=== PATIENT | male | born 1955 | race Caucasian/White ===

== ENCOUNTER → 2017-02-26 | Outpatient (CLI) | payer BC ==
[~2017-02-26] MED LIST: ALBU17IN INH; ASPI1TAB15 PO; ATOR40TA75 PO; BENA40TA7 PO; CARV6.25 PO; CHLO125TA PO; CHLO25TA PO; CLOT10TR MT; DOXY-278 PO; ELIQ5TAB PO; FLUC10TA PO; HYDR-3713 PO; LEVA1TAB2 PO; PRED20TA PO; VENTAER INH; VIAG100T PO
--- NOTE | 2017-02-27 06:34 | REP ---
LEFT SHOULDER, THREE VIEWS: HISTORY: Pain. There is no acute fracture or dislocation. There is narrowing of the acromioclavicular joint space with associated osteophyte formation. Calcification is present lateral to the head of the humerus. This represents ligamentous or tendon calcification. IMPRESSION: Degenerative change as described above. Signed by Dipesh Rod MD 02/27/2017 08:49 A
== END ==
LOC: M WUC 19:06
PROVIDERS: ATTEND Physician Assistant
DX: M25.512 Pain in left shoulder (principal)

== ENCOUNTER 2017-03-02 14:21 | Emergency (ER) | payer BC ==
[~2017-03-02] VITALS: Ht 180.3 cm; Wt 156.8 kg
[2017-03-02] MEDS ORDERED: CHLO125TA PO (14:38)
[2017-03-02] MEDS ORDERED: VIAG100T PO (14:38)
[2017-03-02] MEDS ORDERED: BENA40TA7 PO (14:38)
[2017-03-02] MEDS ORDERED: CARV6.25 PO (14:38)
[2017-03-02] MEDS ORDERED: ATOR40TA75 PO (14:38)
[2017-03-02] MEDS ORDERED: ELIQ5TAB PO (14:38)
[2017-03-02] MEDS ORDERED: LEVA1TAB2 PO (17:56)
[2017-03-02] MEDS ORDERED: ALBU17IN INH (18:00)
--- NOTE | 2017-03-02 18:02 | REP ---
Chest two views HISTORY: Shortness of breath Comparison: 06/25/2012 Increased density is present in the right lower lobe consistent with an infiltrate. The left lung is clear. The heart is normal in size. The pulmonary vasculature is normal in appearance. The bony structure is intact. IMPRESSION: Right lower lobe infiltrate. Signed by Dipesh Rod MD 03/02/2017 05:53 P
[2017-03-02 18:07] VITALS: BP 143/75
[2017-03-02] MEDS ORDERED: PRED20TA PO (18:15)
[2017-03-02] MEDS ORDERED: CLOT10TR MT (18:15)
== END 2017-03-02 18:19 | disposition home or self-care (01) ==
LOC: M ED 14:21
DX: J44.1 Chronic obstructive pulmonary disease with (acute) exacerbation (principal); J18.9 Pneumonia, unspecified organism; Z87.891 Personal history of nicotine dependence; I10 Essential (primary) hypertension

== ENCOUNTER 2017-03-18 13:14 | Inpatient (IN) | payer BC ==
[~2017-03-18] VITALS: Ht 177.8 cm; Wt 158.0 kg
[~2017-03-18 13:14] MED LIST changes: -ASPI1TAB15 PO; -CHLO25TA PO; -DOXY-278 PO; -FLUC10TA PO; -HYDR-3713 PO; -VENTAER INH
[2017-03-18] MEDS ORDERED: HYDR-3713 PO (13:40)
[2017-03-18] MEDS ORDERED: cefTRIAXone SOD 2 GM in D5W 50 ML IV ONE (15:45)
[2017-03-18] MEDS ORDERED: NS 1,000 ML IV ONE (15:45)
[2017-03-18] MEDS ORDERED: AZITHROMYCIN INJ 500 MG, VIAL MATE ADAPTER 1 EACH in D5W 250 ML IV ONE (15:45)
[2017-03-18 16:25] LABS: BASO % 0.1 % (0.0-1.0); EOS # 0.1 10^3/uL (0.0-0.50); EOS % 1.2 % (0.0-3.0); IMMATURE GRANULOCYTE % 0.5 % (0-0); LYMPH # 1.1 10^3/uL (1.5-4.5); LYMPH % 10.9 % (24.0-44.0); MEAN CORPUSCULAR HEMOGLOBIN 30.4 pg (27.0-33.0); MONO # 0.7 10^3/uL (0.0-0.8); MONO % 7.3 % (0.0-5.0); PLATELET COUNT, AUTOMATED 186 10^3/uL (150-450)
[2017-03-18 16:37] LABS: INR 1.32
[2017-03-18] MEDS ORDERED: VENTAER INH (16:45)
[2017-03-18] MEDS ORDERED: CHLO25TA PO (16:45)
[2017-03-18] MEDS ORDERED: ASPI1TAB15 PO (16:45)
[2017-03-18 16:49] LABS: ANION GAP 9 MEQ/L (8-16); BLOOD UREA NITROGEN 24 MG/DL (7-18); CALCIUM LEVEL 8.4 MG/DL (8.8-10.2); CARBON DIOXIDE LEVEL 27 MEQ/L (21-32); CHLORIDE LEVEL 100 MEQ/L (98-107); CREATININE FOR GFR 1.12 MG/DL (0.70-1.30); GLOMERULAR FILTRATION RATE > 60.0 (>49); GLUCOSE, FASTING 173 MG/DL (80-110); SODIUM LEVEL 136 MEQ/L (136-145)
[2017-03-18 16:52] LABS: ALBUMIN 2.6 GM/DL (3.2-5.2); ALBUMIN/GLOBULIN RATIO 0.7 (1.00-1.93); BILIRUBIN,DIRECT 0.2 MG/DL (0.0-0.2); BILIRUBIN,TOTAL 0.6 MG/DL (0.2-1.0); TOTAL PROTEIN 6.3 GM/DL (6.4-8.2)
[2017-03-18] MEDS ORDERED: ISOVUE-370 76% 100ML VIAL (Q9967) As Ordered ONE (16:59)
--- NOTE | 2017-03-18 17:40 | REPUSA ---
CT angiogram of the chest Clinical statement: Chest pain and shortness of breath. Technique: Multiple axial CT images were obtained from the thoracic inlet through the upper abdomen a fter a bolus administration of nonionic intravenous contrast. Coronal and sagittal reconstructions we re also obtained. No comparison is available. Findings: The pulmonary arteries are well-opacified with contrast, with no intraluminal filling defec ts to suggest embolism. The thoracic aorta is unremarkable. Thyroid gland is within normal limits. Th ere is no thoracic lymphadenopathy. There are no pericardial or pleural effusions. There are multifoc al areas of consolidation in the lower lobes of the lungs bilaterally. Limited imaging of the upper a bdomen is unremarkable. There are no suspicious osseous lesions. Impression: 1. No evidence of pulmonary embolism. 2. Multifocal areas of consolidation in the lower lungs bilaterally, consistent with pneumonia.
[2017-03-18] MEDS ORDERED: ONDANSETRON 4 MG TAB (S0181) PO PRN (18:30)
[2017-03-18] MEDS ORDERED: VANCOMYCIN HCL 1,000 MG, VIAL MATE ADAPTER 1 EACH in D5W 250 ML IV ONE (18:45)
[2017-03-18] MEDS ORDERED: NORCO, ANEXSIA 5/325MG TABLET (HYDROcodone/ACETAMINOPHEN) PO PRN (19:00)
--- NOTE | 2017-03-18 19:00 | HPEPDOC ---
General Date of Admission Mar 18, 2017 at 18:25 Chief Complaint The patient is a 62-year-old male Presented to the ER after he was sent from urgent care for an abnormal chest XR. History of Present Illness Patient is a 62 year old male with a PMHx of HTN, CAD s/p Stent (2002) , A. fib s/p Ablation (05/2015, on Eliquis), s/p Loop recorder (2012) and DLP who presented to the ER after he was sent from urgent care for an abnormal chest XR. Patient has noted that he was in the ER on 03/01/2017 for fatigue, loss of appetite and shortness of breath with exertion. Imaging with chest x-ray showed that he had a right lower lobe infiltrate. He was discharged home with Levaquin 500mg daily and Prednisone taper. He noted that he completed his antibiotics and felt better initially but had similar symptoms approaching the end of antibiotic therapy. He noted that he went to urgent care today to evaluate for loss of appetite, no taste and fatigue. He thought he may have had thrush and a prescription was sent to his pharmacy. Urgent care had gotten an XR that recommended a follow up CT scan, hence patient came to [facility] ER. CTA chest was completed which revealed that he had no evidence of PE, but did reveal multifocal areas of consolidation and lower lungs bilaterally consistent with pneumonia. Patient notes that he has been having shortness of breath with exertion, non- productive cough, no fever or chills. He denies nausea, vomiting, abdominal pain , constipation, diarrhea or dysuria. No chest pain or palpitation. He notes that he has had a 10 lbs weight loss in 3-4 weeks because of poor appetite. Home Medications Scheduled Apixaban Base (Eliquis) 5 Mg Tab, 5 MG PO BID, (Reported) Aspirin (Aspirin) 81 Mg Tab, 81 MG PO DAILY, (Reported) Atorvastatin Calcium (Atorvastatin Calcium) 40 Mg Tab, 40 MG PO QHS, (Reported) Benazepril HCl (Benazepril HCl) 40 Mg Tab, 40 MG PO QHS, (Reported) Carvedilol (Carvedilol) 6.25 Mg Tab, 9.375 MG PO BID, (Reported) Chlorthalidone (Chlorthalidone) 25 Mg Tab, 12.5 MG PO DAILY, (Reported) Scheduled PRN Acetaminophen/Hydrocodone (Hydrocodone/Acetaminophen 5-325 mg) 1 Tab Tab, 1 TAB PO QID PRN for pain, (Reported) Albuterol Sulfate (Ventolin Hfa) 108 Mcg/Act Aer, 2 PUFFS INH QID PRN for SHORTNESS OF BREATH, (Reported) Sildenafil Citrate (Viagra) 100 Mg Tab, 100 MG PO PRN PRN for ERECTILE DYSFUNCTION, (Reported) Allergies Coded Allergies: Penicillins (Verified Allergy, Unknown, REACTION A CHILD, 09/03/12) Penicillins Cross Reactors (Verified Allergy, Unknown, REACTION A CHILD , 09/03/12) Past Medical History Medical History HTN, CAD s/p Stent (2002), A. 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 Review of Symptoms Other systems Negative otherwise stated in HPI Vital Signs - Vitals: BP 132/60, HR 77, RR 20, Sat 95%RA, Temp 99.4F - General: Lying in bed, No acute distress, Speaking in full sentences, AAOx3 - HEENT: NC, AT, PERRLA, EOMI, Mild white patches on posterior aspect of tongue - CVS: RRR, +S1S2 - Lungs: Fair air entry bilaterally, No appreciable wheezing / rales / rhonchi - Abdomen: Soft, Non-distended, Non-tender, + Bowel sounds x 4 - Extremities: No lower extremity edema, No calf tenderness - Neuro: No focal motor or sensory deficit - Skin: No visible rashes Laboratory Data Labs 24H Laboratory Tests 2 03/18/17 16:13: Prothrombin Time 16.7H, Prothromb Time International Ratio 1.32 03/18/17 16:14: Immature Granulocyte % (Auto) 0.5H, White Blood Count 10.0, Red Blood Count 3.36L, Hemoglobin 10.2L, Hematocrit 30.9L, Mean Corpuscular Volume 92.0, Mean Corpuscular Hemoglobin 30.4, Mean Corpuscular Hemoglobin Concent 33.0, Red Cell Distribution Width 13.0, Platelet Count 186, Neutrophils (%) (Auto) 80.0H, Lymphocytes (%) (Auto) 10.9L, Monocytes (%) (Auto) 7.3H, Eosinophils (%) (Auto) 1.2, Basophils (%) (Auto) 0.1, Neutrophils # (Auto) 8.0H, Lymphocytes # (Auto) 1.1L, Monocytes # (Auto) 0.7, Eosinophils # (Auto) 0.1, Basophils # (Auto) 0.0, Immature Granulocyte # (Auto) 0.1H, Nucleated Red Blood Cells % (auto) 0.0, Anion Gap 9, Glomerular Filtration Rate > 60.0, Lactic Acid Level 1.1, Blood Urea Nitrogen 24H, Creatinine 1.12, Sodium Level 136, Potassium Level 4.0, Chloride Level 100, Carbon Dioxide Level 27, Calcium Level 8.4L, Aspartate Amino Transf (AST/SGOT) 20, Alanine Aminotransferase (ALT/SGPT) 17, Alkaline Phosphatase 103, Total Bilirubin 0.6, Direct Bilirubin 0.2, C-Reactive Protein, Quantitative 13.80H, Total Protein 6.3L, Albumin 2.6L, Albumin/Globulin Ratio 0.70L 03/18/17 16:16: Urine Appearance CLEAR, Urine Color YELLOW, Urine pH 5.0, Urine Specific [place] 1.019, Urine Protein NEGATIVE, Urine Glucose (UA) NEGATIVE, Urine Ketones NEGATIVE, Urine Urobilinogen 2.0H, Urine Bilirubin NEGATIVE, Urine Leukocyte Esterase NEGATIVE, Urine Blood 1+H, Urine Nitrite NEGATIVE, Urine WBC (Auto) 1, Urine RBC (Auto) 5H, Urine Hyaline Casts (Auto) 0, Urine Bacteria ( Auto) NEGATIVE, Urine Squamous Epithelial Cells 0, Urine Mucus (Auto) SMALL, Urine Sperm (Auto) CBC/BMP Laboratory Tests 03/18/17 16:14 Red Blood Count 3.36 L, Mean Corpuscular Volume 92.0, Mean Corpuscular Hemoglobin 30.4, Mean Corpuscular Hemoglobin Concent 33.0, Red Cell Distribution Width 13.0, Neutrophils (%) (Auto) 80.0 H, Lymphocytes (%) (Auto) 10.9 L, Monocytes (%) (Auto) 7.3 H, Eosinophils (%) (Auto) 1.2, Basophils (%) ( Auto) 0.1, Neutrophils # (Auto) 8.0 H, Lymphocytes # (Auto) 1.1 L, Monocytes # ( Auto) 0.7, Eosinophils # (Auto) 0.1, Basophils # (Auto) 0.0, Calcium Level 8.4 L Microbiology Microbiology 03/18/17 Blood Culture, Received Pending 03/18/17 Blood Culture, Received Pending 03/18/17 Influenza Virus Type A Antigen - Final, Complete 03/18/17 Influenza Virus Type B Antigen - Final, Complete Plan / VTE VTE Prophylaxis Ordered?: Yes Plan Plan Bilateral pneumonia - Failure of outpatient treatment; completed 14 day course of Levaquin - Presented from urgent care because of abnormal XR - Physical unrevealing - Labs reveal no leukocytosis or lactic acidosis; mild elevation in CRP - CTA Chest 03/18: no PE, multifocal areas of consolidation in lower lungs bilaterally - consistent with pneumonia - Will check blood cultures and sputum cultures - will trend CRP - Will start Cefepime, Azithromycin and Vancomycin for coverage of HCAP given failure with Levaquin - c/w IV fluid hydration Possible thrush - Mild white patches on posterior aspect of tongue - will start Diflucan 100 qdaily x 7 days Normocytic anemia - Hg appears to be lower than baseline from 1 year prior - Will check Iron panel, B12, Folate, Reticulocyte count, Occult blood - Will continue to monitor HTN - c/w Carvedilol; will hold EV-I and Chlorthalidone CAD s/p Stent (2002) - c/w ASA A. fib - s/p Ablation (05/2015) - c/w Carvedilol and Eliquis Loop recorder placement (2012) DLP - Hold satin; re: Diflucan Gastrointestinal prophylaxis - Will start Protonix DVT prophylaxis - Will start LovenoCYNTHIA Carmen MD Mar 18, 2017 19:00
[2017-03-18 19:07] LABS: FERRITIN 726 NG/ML (26-388); PERCENT SATURATION 10.6 % (19.7-50.0); TOTAL IRON BINDING CAPACITY 170 UG/DL (250-450)
[2017-03-18 19:19] LABS: RETIC HEMOGLOBIN EQUIVALENT 30.2 pg (24-36); RETICULOCYTE % 1.1 % (0.5-1.5)
[2017-03-18] MEDS ORDERED: PANTOPRAZOLE 40MG INJ (PROTONIX) (C9113) IV SCH (21:00)
[2017-03-18] MEDS: FLUCONAZOLE 100 MG TAB PO SCH (21:42)
[2017-03-18] MEDS: NS 1,000 ML IV SCH (21:42)
[2017-03-18] MEDS: APIXABAN 5 MG TAB (ELIQUIS) PO SCH (21:42)
[2017-03-18] MEDS: CARVedilol 6.25 MG TAB PO SCH (21:44)
[2017-03-18 22:00] VITALS: BP 168/82
[2017-03-18] MEDS: VANCOMYCIN HCL 1,000 MG, VIAL MATE ADAPTER 1 EACH in D5W 250 ML IV SCH (22:56)
--- NOTE | 2017-03-18 23:43 | PHACANCOPD ---
PHARMACY VANCOMYCIN DOSING Pt Demographics Demographics Patient Age:62 , Weight:156.200 , Gender: male Adjusted Body Weight Date: 03/18/17, Adjusted Body Weight: [106] Kg Events Past 24 Hours Events Past 24 Hours: NO: Dialysis, Diuretic Therapy, Change in CrCl, Fever, Elevation in WBC, Pending Diagnostics, Pending Procedures, Other Vancomycin Vancomycin Target Ranges: 15-20 mcg/ml Vancomycin Load Y/N: Yes Load Dose Date Time Vancomycin Load Dose: 2000MG Date: 03-18 Time: 2200 Vancomycin Dose Date: 03/18/17. Current Vancomycin Dose: [1000MG Q8H] Intermittent Dosing?: No Labs Labs Item Value Date Time White Blood Count 10.0 10^3/uL 03/18/174 Creatinine 1.12 MG/DL 03/18/171613 Blood Urea Nitrogen 24 MG/DL H 03/18/17 161 Vital Signs Label Value Date Time Patient Temperature 99.8 degrees F 03/18/17 2200 Temperature Source Temporal 03/18/170 Micro Microbiology 03/18/17 Blood Culture, Received Pending 03/18/17 Blood Culture, Received Pending 03/18/17 Influenza Virus Type A Antigen - Final, Complete 03/18/17 Influenza Virus Type B Antigen - Final, Complete Creatinine Clearance Date:03/18/17. Creatinine Clearance: [69]. Pending Labs Trough 10-16 @ 2100 Assessment and Plan Maintaining Current Dose?: Yes Reason for dose change: No Dose Change Pharmacist Note Pharmacist Note Date: 03/18/17. Pharmacist note:Dosed at 1000mg q8h with a trough ordered for 10 -16 @ 2100. Will continue to monitor and make adjustments as needed. KARELY DURAND [facility]ARM[facility] Mar 18, 2017 23:43
[2017-03-19] MEDS: AZITHROMYCIN INJ 500 MG, VIAL MATE ADAPTER 1 EACH in D5W 250 ML IV SCH (00:45)
[2017-03-19] MEDS: CEFEPIME HCL 1 GM in D5W 50 ML IV SCH ×2 (04:48→15:55)
[2017-03-19 06:00] VITALS: BP 108/54
[2017-03-19] MEDS: VANCOMYCIN HCL 1,000 MG, VIAL MATE ADAPTER 1 EACH in D5W 250 ML IV SCH ×3 (06:13→22:54)
[2017-03-19 06:32] LABS: BASO % 0.3 % (0.0-1.0); EOS # 0.1 10^3/uL (0.0-0.50); EOS % 1.6 % (0.0-3.0); IMMATURE GRANULOCYTE % 0.3 % (0-0); LYMPH # 1.1 10^3/uL (1.5-4.5); LYMPH % 14.8 % (24.0-44.0); MEAN CORPUSCULAR HEMOGLOBIN 29.9 pg (27.0-33.0); MEAN CORPUSCULAR HGB CONC 32.9 g/dl (32.0-36.5); MEAN CORPUSCULAR VOLUME 90.9 fl (80.0-96.0); MONO # 0.7 10^3/uL (0.0-0.8); MONO % 9.1 % (0.0-5.0); NEUTROPHILS # 5.7 10^3/uL (1.8-7.7); NEUTROPHILS % 73.9 % (36.0-66.0); PLATELET COUNT, AUTOMATED 149 10^3/uL (150-450); RED CELL DISTRIBUTION WIDTH 12.9 % (11.5-14.5); WHITE BLOOD COUNT 7.7 10^3/uL (4.0-10.0)
[2017-03-19 06:51] LABS: ALKALINE PHOSPHATASE 90 U/L (45-117); ALT/SGPT 16 U/L (12-78); AST/SGOT 14 U/L (15-37); BILIRUBIN,TOTAL 0.4 MG/DL (0.2-1.0); BLOOD UREA NITROGEN 17 MG/DL (7-18); CALCIUM LEVEL 8.3 MG/DL (8.8-10.2); CREATININE FOR GFR 0.89 MG/DL (0.70-1.30); GLUCOSE, FASTING 146 MG/DL (80-110); MAGNESIUM LEVEL 2.1 MG/DL (1.8-2.4); SODIUM LEVEL 136 MEQ/L (136-145); TOTAL PROTEIN 6.5 GM/DL (6.4-8.2)
[2017-03-19] MEDS: NS 1,000 ML IV SCH ×2 (06:55→19:25)
[2017-03-19 07:03] LABS: ALBUMIN 2.2 GM/DL (3.2-5.2); ALBUMIN/GLOBULIN RATIO 0.51 (1.00-1.93)
[2017-03-19 08:24] LABS: ANION GAP 8 MEQ/L (8-16); CARBON DIOXIDE LEVEL 28 MEQ/L (21-32); CHLORIDE LEVEL 100 MEQ/L (98-107)
[2017-03-19] MEDS: ENOXAPARIN 40 MG/0.4 ML SYRINGE (J1650) SC SCH (09:11)
[2017-03-19] MEDS: APIXABAN 5 MG TAB (ELIQUIS) PO SCH ×2 (09:11→21:47)
[2017-03-19] MEDS: CARVedilol 6.25 MG TAB PO SCH ×2 (09:12→21:47)
[2017-03-19] MEDS: ASPIRIN 81 MG ENTERIC TAB PO SCH (09:13)
[2017-03-19 09:16] LABS: VITAMIN B12 LEVEL 345 PG/ML (247-911)
--- NOTE | 2017-03-19 09:16 | ECGEPIP ---
Stationary ECG Study [facility] - ED Test Date: 2017-03-18 Pat Name: FRANCK MANCUSO Department: Room: [place] [address] Gender: M [employer] Hel[employer]: promise : 1955 Requested By: AMGEN Dorsey PA-C Order Number: [id number] Reading MD: Shayne Washington Measurements Intervals [place] Rate: 76 P: 55 VT: 154 QRS: 32 QRSD: 88 T: 26 QT: 346 QTc: 390 Interpretive Statements SINUS RHYTHM NSTTW ABNORMALITIES SIMILAR TO 06/25/12 Electronically Signed On 03-19-2017 9:16:06 EDT by Shayne Washington
[2017-03-19] MEDS: ACETAMINOPHEN TAB 650MG DOSE (2X325MG) PO PRN (13:30)
[2017-03-19 14:00] VITALS: BP 132/74
--- NOTE | 2017-03-19 15:58 | IPN ---
DATE: 03/19/2017 SUBJECTIVE: The patient is seen and examined in the room today. The patient stated that his symptoms have remained the same as yesterday. The patient has not noticed any significant improvement at the moment. The patient continues to have intermittent cough; however, he feels that he cannot bring up any sputum for cultures. The patient has a history of atrial fibrillation. The patient also has a loop recorder in place. Denies any chest pain. Still has intermittent shortness of breath requiring intermittent oxygen supplement. Denies any fever or chills. Denies any recent hospitalizations. OBJECTIVE: VITAL SIGNS: Temperature 99.5, pulse 73, respirations 18, blood pressure 108/54 , pulse oximetry is 93% with 2 liters nasal cannula. GENERAL: Morbidly obese. Fatigued. No sign of acute distress. Oriented times three. HEENT: Normocephalic, atraumatic. Extraocular motors are grossly intact. CARDIOVASCULAR: Positive S1, S2. Regular rate. LUNGS: Clear to auscultation bilaterally. No wheezes or rhonchi. ABDOMEN: Soft, nontender, nondistended. Bowel sounds present. EXTREMITIES: No edema. No sign of cyanosis. LABORATORY DATA: WBC is 7.7, hemoglobin 9.5, hematocrit 28.9, platelet count is 149. Sodium is 136, potassium 4, chloride is 100, carbon dioxide 28, BUN 17, creatinine 0.89, fasting glucose 146, calcium 8.3, magnesium 2.1, total bilirubin 0.4, AST 14, ALT 16, alkaline phosphatase 90, C-reactive protein is 12, total protein is 625, albumin 2.2. ASSESSMENT AND PLAN: 1. Multifocal pneumonia in bilateral lungs. The patient came to the emergency room previously and the patient was discharged home with 14-days of Levaquin. The patient stated that during the first 7 days, the patient felt some improvement; however, later the symptoms continued to get worse. The patient was started on broad spectrum antibiotics. Unfortunately, we could not get any sputum sample for the culture. 2. History of atrial fibrillation, status post ablation. On carvedilol and Eliquis. Per patient, the patient does not have any arrhythmia since ablation. EKG performed and shows sinus rhythm. 3. History of coronary artery disease, status post stent and on aspirin. 4. Dyslipidemia. Was on statin at home. Currently, due to the Diflucan treatment, statin will be on hold. 5. Hypertension. At the time of the encounter, the patient's blood pressure is in the satisfactory range. Continue to hold chlorthalidone. 6. Deep vein thrombosis (DVT) prophylaxis. On Eliquis. MTDD
[2017-03-19] MEDS: FLUCONAZOLE 100 MG TAB PO SCH (21:46)
[2017-03-19 22:00] VITALS: BP 142/64
[2017-03-20] MEDS: AZITHROMYCIN INJ 500 MG, VIAL MATE ADAPTER 1 EACH in D5W 250 ML IV SCH (00:58)
[2017-03-20] MEDS: CEFEPIME HCL 1 GM in D5W 50 ML IV SCH ×2 (05:05→17:36)
[2017-03-20 06:00] VITALS: BP 130/78
[2017-03-20] MEDS: VANCOMYCIN HCL 1,000 MG, VIAL MATE ADAPTER 1 EACH in D5W 250 ML IV SCH ×3 (06:10→22:22)
[2017-03-20 07:14] LABS: BASO % 0.3 % (0.0-1.0); EOS # 0.1 10^3/uL (0.0-0.50); EOS % 1.3 % (0.0-3.0); IMMATURE GRANULOCYTE % 0.5 % (0-0); LYMPH # 1.1 10^3/uL (1.5-4.5); MEAN CORPUSCULAR HEMOGLOBIN 30.1 pg (27.0-33.0); MEAN CORPUSCULAR HGB CONC 33.5 g/dl (32.0-36.5); MEAN CORPUSCULAR VOLUME 89.9 fl (80.0-96.0); MONO # 0.7 10^3/uL (0.0-0.8); MONO % 8.5 % (0.0-5.0); NEUTROPHILS # 5.8 10^3/uL (1.8-7.7); NEUTROPHILS % 75.4 % (36.0-66.0); PLATELET COUNT, AUTOMATED 169 10^3/uL (150-450); RED CELL DISTRIBUTION WIDTH 12.6 % (11.5-14.5); WHITE BLOOD COUNT 7.7 10^3/uL (4.0-10.0)
[2017-03-20 07:38] LABS: ALBUMIN/GLOBULIN RATIO 0.43 (1.00-1.93); ALKALINE PHOSPHATASE 89 U/L (45-117); ALT/SGPT 16 U/L (12-78); ANION GAP 8 MEQ/L (8-16); AST/SGOT 13 U/L (15-37); BILIRUBIN,TOTAL 0.5 MG/DL (0.2-1.0); BLOOD UREA NITROGEN 9 MG/DL (7-18); CALCIUM LEVEL 8.2 MG/DL (8.8-10.2); CARBON DIOXIDE LEVEL 24 MEQ/L (21-32); CHLORIDE LEVEL 100 MEQ/L (98-107); CREATININE FOR GFR 0.75 MG/DL (0.70-1.30); GLOMERULAR FILTRATION RATE > 60.0 (>49); GLUCOSE, FASTING 145 MG/DL (80-110); MAGNESIUM LEVEL 1.9 MG/DL (1.8-2.4); POTASSIUM SERUM 3.6 MEQ/L (3.5-5.1); SODIUM LEVEL 132 MEQ/L (136-145); TOTAL PROTEIN 6.6 GM/DL (6.4-8.2)
[2017-03-20] MEDS: ENOXAPARIN 40 MG/0.4 ML SYRINGE (J1650) SC SCH (10:14)
[2017-03-20] MEDS: ASPIRIN 81 MG ENTERIC TAB PO SCH (10:14)
[2017-03-20] MEDS: NS 1,000 ML IV SCH (10:14)
[2017-03-20] MEDS: CARVedilol 6.25 MG TAB PO SCH ×2 (10:15→22:22)
[2017-03-20] MEDS: APIXABAN 5 MG TAB (ELIQUIS) PO SCH ×2 (10:15→22:20)
[2017-03-20 14:00] VITALS: BP 124/76
--- NOTE | 2017-03-20 15:30 | IPN ---
DATE OF EXAM: 03/20/2017 SUBJECTIVE: The patient tells me that he is feeling better. He tells me he still has some shortness of breath with exertion, but he finds it easier to take a deep breath. He tells me that he has a little bit of dry cough but, all in all, he does feel improving. He denies chest pain, nausea, vomiting, fevers, or chills. OBJECTIVE: VITAL SIGNS: Temperature 98, pulse 64, respiratory rate 16, blood pressure 130/78, oxygen saturation 98% on room air. GENERAL: He is an obese, elderly, man sitting on the edge of his bed. He does not appear to be in any acute distress. HEENT: Cranial nerves II-XII are grossly intact. He has moist mucous membranes. Difficult to assess for any elevation of central venous pressure (CVP) secondary to his body habitus and his quiroga. CARDIOVASCULAR EXAM: S1, S2, regular. No distant heart sounds appreciated. RESPIRATORY EXAM: Is actually quite clear with good air movement. ABDOMINAL EXAM: Is obese. Bowel sounds present. The abdomen is soft. EXTREMITIES: No clubbing, cyanosis, or edema. LABORATORY STUDIES: WBC 7.7, hemoglobin 9.5, platelet count 169. Chemistry panel: Sodium 132, potassium 3.6, chloride 100, bicarbonate 24, BUN 9 , creatinine 0.7. CRP is fairly stable at 13. Microbiology: Blood cultures are negative from 03/18/2017 as well as an influenza swab. IMAGING: The patient did a CT angiography of the chest which revealed no evidence of pulmonary embolus (PE) and multifocal areas of consolidation in the lower lungs bilaterally, consistent with pneumonia. ASSESSMENT AND PLAN: This is a 62-year-old man admitted at this time for pneumonia. PROBLEM: 1. Pneumonia. The patient has been in empiric broad-spectrum antibiotics with azithromycin, vancomycin, and cefepime. He does appear to be improving. He had previously completed seven days of Levaquin; however, his symptoms did not improve. At this time, I will check respiratory PCR panel as well as a methicillin-resistant Staphylococcus aureus (MRSA) screen. If they are negative, I think he could likely be discharged on potentially by mouth doxycycline as early as tomorrow as long as his ambulating oxygen saturation continues to show no need for oxygen. He does appear to be improving. This syndrome appears to be resolving. 2. Atrial fibrillation, status post ablation. He is anticoagulated with Eliquis and rate controlled with Coreg. 3. Coronary artery disease. He is on a beta-twyla, aspirin. Curiously, he is not on a statin. Will defer to his outpatient providers. 4. Hypertension, controlled. His chlorthalidone is currently on hold. Consider restarting upon discharge. 5. Oral thrush. The patient is on Diflucan. 6. Deep venous thrombosis (DVT) prophylaxis. Patient is on Eliquis. DISPOSITION: Pending his continued progress and his inability to narrow antibiotics spectrum. MTDD
[2017-03-20 22:00] VITALS: BP 141/62
[2017-03-20] MEDS: ACETAMINOPHEN TAB 650MG DOSE (2X325MG) PO PRN (22:20)
[2017-03-20] MEDS: FLUCONAZOLE 100 MG TAB PO SCH (22:21)
[2017-03-21] MEDS: AZITHROMYCIN INJ 500 MG, VIAL MATE ADAPTER 1 EACH in D5W 250 ML IV SCH (00:01)
[2017-03-21] MEDS: CEFEPIME HCL 1 GM in D5W 50 ML IV SCH (04:12)
[2017-03-21 06:00] VITALS: BP 145/64
[2017-03-21] MEDS: VANCOMYCIN HCL 1,000 MG, VIAL MATE ADAPTER 1 EACH in D5W 250 ML IV SCH (06:02)
[2017-03-21 07:46] LABS: BASO % 0.2 % (0.0-1.0); EOS # 0.2 10^3/uL (0.0-0.50); EOS % 1.9 % (0.0-3.0); IMMATURE GRANULOCYTE % 0.4 % (0-0); LYMPH # 0.8 10^3/uL (1.5-4.5); LYMPH % 9.7 % (24.0-44.0); MEAN CORPUSCULAR HGB CONC 33.3 g/dl (32.0-36.5); MONO # 0.7 10^3/uL (0.0-0.8); NEUTROPHILS # 6.8 10^3/uL (1.8-7.7); NEUTROPHILS % 79.8 % (36.0-66.0); PLATELET COUNT, AUTOMATED 156 10^3/uL (150-450); RED CELL DISTRIBUTION WIDTH 12.5 % (11.5-14.5); WHITE BLOOD COUNT 8.5 10^3/uL (4.0-10.0)
[2017-03-21 08:15] LABS: ALBUMIN 2.1 GM/DL (3.2-5.2); ALBUMIN/GLOBULIN RATIO 0.46 (1.00-1.93); ALKALINE PHOSPHATASE 92 U/L (45-117); ALT/SGPT 17 U/L (12-78); ANION GAP 5 MEQ/L (8-16); AST/SGOT 13 U/L (15-37); BILIRUBIN,TOTAL 0.5 MG/DL (0.2-1.0); BLOOD UREA NITROGEN 9 MG/DL (7-18); CALCIUM LEVEL 8.8 MG/DL (8.8-10.2); CARBON DIOXIDE LEVEL 31 MEQ/L (21-32); CHLORIDE LEVEL 98 MEQ/L (98-107); CREATININE FOR GFR 0.85 MG/DL (0.70-1.30); GLOMERULAR FILTRATION RATE > 60.0 (>49); GLUCOSE, FASTING 160 MG/DL (80-110); MAGNESIUM LEVEL 1.8 MG/DL (1.8-2.4); POTASSIUM SERUM 3.9 MEQ/L (3.5-5.1); SODIUM LEVEL 134 MEQ/L (136-145); TOTAL PROTEIN 6.7 GM/DL (6.4-8.2)
[2017-03-21] MEDS: ASPIRIN 81 MG ENTERIC TAB PO SCH (08:37)
[2017-03-21] MEDS: APIXABAN 5 MG TAB (ELIQUIS) PO SCH (08:37)
[2017-03-21] MEDS: ENOXAPARIN 40 MG/0.4 ML SYRINGE (J1650) SC SCH (08:37)
[2017-03-21 08:38] VITALS: BP 145/70
[2017-03-21] MEDS: CARVedilol 6.25 MG TAB PO SCH (08:38)
[2017-03-21] MEDS ORDERED: FLUC10TA PO (10:09)
[2017-03-21] MEDS ORDERED: DOXY-278 PO (10:09)
--- NOTE | 2017-03-21 15:56 | DSES ---
DATE OF ADMISSION: 03/18/2017 DATE OF DISCHARGE: 03/21/2017 DISCHARGE DIAGNOSIS: Community-acquired pneumonia. SECONDARY DIAGNOSES: 1. Atrial fibrillation. 2. Coronary artery disease. 3. Hypertension. 4. Oral thrush. HOSPITAL COURSE: The patient is a 62-year-old man who had had respiratory symptoms and feeling unwell for several days. He presented to his primary care provider and had actually been on a 14-day course of levofloxacin and seven days into it, he began to have worsening of his symptoms prompting him to present to the emergency room. He was found on admission imaging to have a low-grade temperature and a CT angiography revealed multifocal areas of consolidation in the lower lung tuttle bilaterally consistent with pneumonia, and as such, he was admitted to the hospitalist service. The patient was initially on fairly broad spectrum antibiotics including cefepime, azithromycin, and vancomycin. However, his blood cultures remained negative and influenza swab and respiratory PCR panel remained negative. He did not have significant leukocytosis, fever, or sepsis. His symptoms did gradually improve and antibiotic spectrum was narrowed. He had no need for any oxygen requirement and his cough did resolve. During his stay, he was noted to have oral thrush and was started on a short course of Diflucan with improvement in his symptoms. SUBJECTIVE: This morning, the patient reports that he is feeling well. He has a light headache and some mild shortness of breath with strenuous exertion but he is able to ambulate without any oxygen requirement and feels as though his syndrome is resolving. OBJECTIVE: VITAL SIGNS: Temperature 98.8, pulse 60, respiratory rate 15, blood pressure 145/64, oxygen saturation 92% on room air. GENERAL: He is an obese, elderly, man sitting on the edge of the bed. He does not appear to be in any acute distress. He actually stands up to great me as I enter the room. NEUROLOGIC: Cranial nerves II-XII are grossly intact. HEENT: He has moist mucous membranes. No elevation of central venous pressure (CVP), although it was difficult to assess secondary to his body habitus and his large quiroga. CARDIOVASCULAR: S1, S2, appears regular. RESPIRATORY: Actually very clear with good air movement throughout all lung tuttle. ABDOMEN: Grossly obese. Bowel sounds are present. The abdomen is soft. EXTREMITIES: No clubbing, cyanosis, or edema. LABORATORY STUDIES: WBC 8.5, hemoglobin 9.6, hematocrit 28.8, platelet count 156. Chemistry panel: Sodium 134, potassium 3.9, chloride 98, bicarbonate 31, BUN 9, creatinine 0.8. MICROBIOLOGY: All negative as outlined above. IMAGING STUDIES: As outlined above. ASSESSMENT AND PLAN: This is a 62-year-old man admitted with pneumonia. PROBLEMS: 1. Community-acquired pneumonia. The patient was initially on broad spectrum antibiotics. However, his cultures were negative and he did not appear to be septic. His antibiotic spectrum will be narrowed to doxycycline 100 mg by mouth twice a day to complete five additional days. He should followup with his primary care provider (PCP) within seven days. 2. Oral thrush. The patient was started on Diflucan earlier during his stay. He is being discharged on this medication which he will continue to complete a seven-day course. 3. Atrial fibrillation status post ablation. He is anticoagulated with Eliquis and rate controlled with Coreg. He appeared regular during his stay. 4. Coronary artery disease. He is on a beta twyla and aspirin. He is not on a statin. We will defer to his outpatient providers. 5. Hypertension. His chlorthalidone and benazepril were on hold while he was in the hospital but will restart upon discharge. 6. Chronic pain. Continue with hydrocodone, acetaminophen. 7. Asthma. Continue with Ventolin. 8. Erectile dysfunction. Continue with sildenafil. DISPOSITION: The patient is being discharged home. He is independent of his activities of daily living (ADLs). He is at his functional baseline. His clinical status has improved. He can followup with his primary care provider (PCP) in seven days. His activity and diet are as prior to admission. He is to return to the emergency room (ER) if his symptoms worsen. MEDICATIONS AT THE TIME OF DISCHARGE: - doxycycline 100 mg every 12 hours for five days - fluconazole 100 mg at bedtime for six days - acetaminophen/hydrocodone 5/325 one tablet four times daily as needed for pain - Ventolin HFA two puffs inhaled four times a day as needed for shortness of breath - Eliquis 5 mg twice a day - aspirin 81 mg daily - atorvastatin 40 mg at bedtime - benazepril 40 mg at bedtime - carvedilol 9.375 mg twice a day - chlorthalidone 12.5 mg daily - sildenafil 100 mg as needed for erectile dysfunction Greater than 30 minutes was spent organizing disposition.
== END 2017-03-21 12:10 | disposition home or self-care (01) | DRG 139 ==
LOC: M ED 13:14 → M ED INP 18:25 → M MS5PR 20:43
PROVIDERS: ADMIT Internal Medicine; ATTEND Internal Medicine
DX: J18.9 Pneumonia, unspecified organism (principal); B37.0 Candidal stomatitis; I48.91 Unspecified atrial fibrillation; E66.01 Morbid (severe) obesity due to excess calories; I25.10 Atherosclerotic heart disease of native coronary artery without angina pectoris; I10 Essential (primary) hypertension; J45.909 Unspecified asthma, uncomplicated; N52.9 Male erectile dysfunction, unspecified; Z79.82 Long term (current) use of aspirin; Z79.899 Other long term (current) drug therapy; Z88.0 Allergy status to penicillin; Z79.01 Long term (current) use of anticoagulants; D64.9 Anemia, unspecified; E78.5 Hyperlipidemia, unspecified

== ENCOUNTER → 2017-03-18 | Outpatient (CLI) | payer BC ==
--- NOTE | 2017-03-18 12:28 | REP ---
Chest x-ray: Two views. History: Cough. Comparison chest x-ray March 02, 2017 and March 20, 2011. Findings: There is abnormal opacity in the right lower lobe posteromedially. There is fullness in the right hilar region. There is a nodular opacity in the left perihilar region on the left measuring 19 mm in greatest diameter. Some pleural thickening is seen laterally on the right. Heart is not enlarged. A rhythm monitoring device is seen in the precordial soft tissues. Some increased markings are noted in the left lower lobe as well. Findings are more prominent than on March 02, 2017. Impression: Persistent opacities right lower lobe and left lower lobe distribution. Left perihilar nodular opacity. Fullness in the right hilus. Consider chest CT. Signed by Raudel Sullivan MD 03/18/2017 01:26 P
[2017-03-18 18:04] LABS: BASO % 0.2 % (0.0-1.0); EOS # 0.1 10^3/uL (0.0-0.50); EOS % 0.9 % (0.0-3.0); IMMATURE GRANULOCYTE % 0.5 % (0-0); LYMPH # 1.1 10^3/uL (1.5-4.5); LYMPH % 10.9 % (24.0-44.0); MEAN CORPUSCULAR HEMOGLOBIN 29.9 pg (27.0-33.0); MEAN CORPUSCULAR HGB CONC 32.1 g/dl (32.0-36.5); MEAN CORPUSCULAR VOLUME 93.3 fl (80.0-96.0); MONO # 0.8 10^3/uL (0.0-0.8); NEUTROPHILS # 8.2 10^3/uL (1.8-7.7); NEUTROPHILS % 79.5 % (36.0-66.0); PLATELET COUNT, AUTOMATED 203 10^3/uL (150-450); RED CELL DISTRIBUTION WIDTH 13.2 % (11.5-14.5); WHITE BLOOD COUNT 10.3 10^3/uL (4.0-10.0)
== END ==
LOC: M WUC 11:25
PROVIDERS: ATTEND Physician Assistant
DX: R91.8 Other nonspecific abnormal finding of lung field (principal); R05 Cough; R53.83 Other fatigue

== ENCOUNTER → 2017-05-22 | Outpatient (REF) | payer BC ==
[~2017-05-22] MED LIST changes: +ASPI1TAB15 PO; +CHLO25TA PO; +DOXY-278 PO; +FLUC10TA PO; +HYDR-3713 PO; +VENTAER INH
== END ==
LOC: M LAB REF 14:38
PROVIDERS: ATTEND Family Medicine
DX: D64.9 Anemia, unspecified (principal)

== ENCOUNTER → 2018-10-02 | Outpatient (CLI) | payer BC ==
[~2018-10-02] MED LIST changes: -DOXY-278 PO; +DOXY-350 PO
--- NOTE | 2018-10-03 12:08 | REP ---
Chest two views HISTORY: Pneumonia Comparison: 03/30/2017 The lungs are clear. The cardiac silhouette is enlarged. The pulmonary vasculature is normal in appearance. Degenerative change is present in the thoracic spine. IMPRESSION: Cardiomegaly. Electronically Signed by Dipesh Rod MD 10/03/2018 12:00 P
== END ==
LOC: M WUC 18:57
PROVIDERS: ATTEND Internal Medicine Critical Care Medicine
DX: I51.7 Cardiomegaly (principal)

== ENCOUNTER → 2018-10-02 | Outpatient (CLI) | payer BC ==
--- NOTE | 2018-10-03 14:29 | REP ---
LEFT SHOULDER, THREE VIEWS: HISTORY: Shoulder pain. There is no acute fracture or dislocation. The joint spaces are normal in appearance. IMPRESSION: There is no acute fracture or dislocation. Electronically Signed by Dipesh Rod MD 10/03/2018 02:53 P
== END ==
LOC: M WUC 18:55
PROVIDERS: ATTEND Physician Assistant
DX: M25.512 Pain in left shoulder (principal)

== ENCOUNTER → 2018-10-08 | Outpatient (REF) | payer BC ==
[2018-10-08 16:55] LABS: BLOOD UREA NITROGEN 22 MG/DL (7-18); CREATININE FOR GFR 0.97 MG/DL (0.70-1.30); GLOMERULAR FILTRATION RATE > 60.0 (>49)
== END ==
LOC: M LABDRAW1 15:50
PROVIDERS: ATTEND Physical Medicine & Rehabilitation
DX: M47.816 Spondylosis without myelopathy or radiculopathy, lumbar region (principal)

== ENCOUNTER → 2018-11-08 | Outpatient (CLI) | payer BC | LOC: M PLARAD 10:45 | PROVIDERS: ATTEND Physical Medicine & Rehabilitation | DX: M47.26 Other spondylosis with radiculopathy, lumbar region (principal) ==

== ENCOUNTER → 2018-11-11 | Outpatient (REF) | payer BC | LOC: M LAB REF 16:10 | PROVIDERS: ATTEND Physician Assistant | DX: R30.0 Dysuria (principal) ==

== ENCOUNTER → 2018-11-15 | Outpatient (REF) | payer BC ==
[2018-11-15 17:36] LABS: APPEARANCE, URINE TURBID (CLEAR); BACTERIA, URINE AUTO NEGATIVE (NEGATIVE); BILIRUBIN, URINE AUTO NEGATIVE (NEGATIVE); BLOOD, URINE BLOOD 3+ (NEGATIVE); CALCIUM OXALATE CRYSTALS MODERATE; COLOR, URINE AMBER (YELLOW); GLUCOSE, URINE (UA) AUTO 1+ mg/dL (NEGATIVE); KETONE, URINE AUTO TRACE mg/dL (NEGATIVE); LEUKOCYTE ESTERASE, URINE AUTO NEGATIVE (NEGATIVE); MUCUS, URINE LARGE (NEGATIVE); NITRITE, URINE AUTO NEGATIVE (NEGATIVE); PROTEIN, URINE AUTO NEGATIVE (NEGATIVE); RBC, URINE AUTO TNTC /HPF (0-3); SPECIFIC GRAVITY URINE AUTO 1.025 (1.002-1.035); SQUAMOUS EPITHELIAL CELL UR AU 0 /HPF (0-6); UROBILINOGEN, URINE AUTO 0.2 mg/dL (0.0-2.0); WBC, URINE AUTO 1 /HPF (0-3)
== END ==
LOC: M LAB REF 16:36
PROVIDERS: ATTEND Family Medicine
DX: R31.9 Hematuria, unspecified (principal)

== ENCOUNTER → 2018-12-09 | Outpatient (REF) | payer BC ==
[2018-12-09 13:26] LABS: APPEARANCE, URINE HAZY (CLEAR); BACTERIA, URINE AUTO NEGATIVE (NEGATIVE); BILIRUBIN, URINE AUTO NEGATIVE (NEGATIVE); BLOOD, URINE BLOOD 3+ (NEGATIVE); CALCIUM OXALATE CRYSTALS LARGE; COLOR, URINE YELLOW (YELLOW); GLUCOSE, URINE (UA) AUTO NEGATIVE (NEGATIVE); KETONE, URINE AUTO NEGATIVE (NEGATIVE); LEUKOCYTE ESTERASE, URINE AUTO NEGATIVE (NEGATIVE); MUCUS, URINE SMALL (NEGATIVE); NITRITE, URINE AUTO NEGATIVE (NEGATIVE); PROTEIN, URINE AUTO NEGATIVE (NEGATIVE); RBC, URINE AUTO 148 /HPF (0-3); SPECIFIC GRAVITY URINE AUTO 1.023 (1.002-1.035); SQUAMOUS EPITHELIAL CELL UR AU 0 /HPF (0-6); UROBILINOGEN, URINE AUTO 0.2 mg/dL (0.0-2.0); WBC, URINE AUTO 4 /HPF (0-3)
== END ==
LOC: M LAB REF 12:34
PROVIDERS: ATTEND Family Medicine
DX: R31.9 Hematuria, unspecified (principal)

== ENCOUNTER → 2019-01-20 | Outpatient (REF) | payer BC ==
[2019-01-20 13:49] LABS: APPEARANCE, URINE HAZY (CLEAR); BACTERIA, URINE AUTO NEGATIVE (NEGATIVE); BILIRUBIN, URINE AUTO NEGATIVE (NEGATIVE); BLOOD, URINE BLOOD 3+ (NEGATIVE); COLOR, URINE YELLOW (YELLOW); GLUCOSE, URINE (UA) AUTO NEGATIVE (NEGATIVE); KETONE, URINE AUTO NEGATIVE (NEGATIVE); LEUKOCYTE ESTERASE, URINE AUTO NEGATIVE (NEGATIVE); MUCUS, URINE SMALL (NEGATIVE); NITRITE, URINE AUTO NEGATIVE (NEGATIVE); PROTEIN, URINE AUTO 1+ mg/dL (NEGATIVE); RBC, URINE AUTO TNTC /HPF (0-3); SQUAMOUS EPITHELIAL CELL UR AU 0 /HPF (0-6); UROBILINOGEN, URINE AUTO 0.2 mg/dL (0.0-2.0); WBC, URINE AUTO 2 /HPF (0-3)
== END ==
LOC: M LAB REF 12:47
PROVIDERS: ATTEND Family Medicine
DX: R31.9 Hematuria, unspecified (principal)

== ENCOUNTER → 2019-03-31 | Outpatient (CLI) | payer MEDICARE ==
--- NOTE | 2019-03-31 09:41 | REP ---
Two-view chest: 03/31/2019. Indication: Dyspnea. Comparison: 10/02/2018. Findings: Increased interstitial markings and cardiomegaly are redemonstrated. There is no pneumothorax. Medial right lung atelectasis is redemonstrated. Impression: New increased interstitial markings suggestive of early CHF. There is no pleural effusion. Clinical correlation is required. Electronically Signed by Shola Ayers DO 03/31/2019 09:40 A
== END ==
LOC: M WUC 09:06
PROVIDERS: ATTEND Internal Medicine Cardiovascular Disease
DX: J44.9 Chronic obstructive pulmonary disease, unspecified (principal); I51.7 Cardiomegaly; J84.9 Interstitial pulmonary disease, unspecified; J98.11 Atelectasis

== ENCOUNTER → 2019-04-17 | Outpatient (REF) | payer MEDICARE ==
[2019-04-17 15:01] LABS: APPEARANCE, URINE HAZY (CLEAR); BACTERIA, URINE AUTO NEGATIVE (NEGATIVE); BILIRUBIN, URINE AUTO NEGATIVE (NEGATIVE); BLOOD, URINE BLOOD 3+ (NEGATIVE); CALCIUM OXALATE CRYSTALS SMALL; COLOR, URINE YELLOW (YELLOW); GLUCOSE, URINE (UA) AUTO NEGATIVE (NEGATIVE); KETONE, URINE AUTO NEGATIVE (NEGATIVE); LEUKOCYTE ESTERASE, URINE AUTO NEGATIVE (NEGATIVE); MUCUS, URINE SMALL (NEGATIVE); NITRITE, URINE AUTO NEGATIVE (NEGATIVE); PROTEIN, URINE AUTO NEGATIVE (NEGATIVE); RBC, URINE AUTO 128 /HPF (0-3); SPECIFIC GRAVITY URINE AUTO 1.023 (1.002-1.035); SQUAMOUS EPITHELIAL CELL UR AU 0 /HPF (0-6); UROBILINOGEN, URINE AUTO 0.2 mg/dL (0.0-2.0); WBC, URINE AUTO 6 /HPF (0-3)
== END ==
LOC: M LAB REF 12:42
PROVIDERS: ATTEND Family Medicine
DX: R31.9 Hematuria, unspecified (principal)

== ENCOUNTER → 2019-07-09 | Outpatient (REF) | payer MEDICARE ==
[~2019-07-09] MED LIST changes: +BENA40TA5 PO; -BENA40TA7 PO
[2019-07-09 18:25] LABS: APPEARANCE, URINE CLOUDY (CLEAR); BACTERIA, URINE AUTO NEGATIVE (NEGATIVE); BILIRUBIN, URINE AUTO NEGATIVE (NEGATIVE); BLOOD, URINE BLOOD 3+ (NEGATIVE); COLOR, URINE YELLOW (YELLOW); GLUCOSE, URINE (UA) AUTO 1+ mg/dL (NEGATIVE); KETONE, URINE AUTO NEGATIVE (NEGATIVE); LEUKOCYTE ESTERASE, URINE AUTO NEGATIVE (NEGATIVE); MUCUS, URINE SMALL (NEGATIVE); NITRITE, URINE AUTO NEGATIVE (NEGATIVE); PROTEIN, URINE AUTO 1+ mg/dL (NEGATIVE); RBC, URINE AUTO TNTC /HPF (0-3); SPECIFIC GRAVITY URINE AUTO 1.023 (1.002-1.035); SQUAMOUS EPITHELIAL CELL UR AU 0 /HPF (0-6); UROBILINOGEN, URINE AUTO 0.2 mg/dL (0.0-2.0); WBC, URINE AUTO 2 /HPF (0-3)
[2019-07-09 18:47] LABS: INR 1.1
[2019-07-09 18:48] LABS: PARTIAL THROMBOPLASTIN TIME 30.1 SECONDS (25.0-38.4)
== END ==
LOC: M LAB REF 17:00
PROVIDERS: ATTEND Family Medicine
DX: Z01.818 Encounter for other preprocedural examination (principal); Z79.899 Other long term (current) drug therapy

== ENCOUNTER → 2020-03-08 | Outpatient (REF) | payer MEDICARE ==
[~2020-03-08] MED LIST changes: +ASPI-546 PO; -ASPI1TAB15 PO
[2020-03-08 15:38] LABS: INR 1.07; PARTIAL THROMBOPLASTIN TIME 30.3 SECONDS (24.2-38.5); PROTHROMBIN TIME 14.1 SECONDS (12.5-14.3)
[2020-03-08 15:50] LABS: AMORPHOUS SEDIMENT SMALL (NEGATIVE); APPEARANCE, URINE TURBID (CLEAR); BACTERIA, URINE AUTO 1+ (NEGATIVE); BILIRUBIN, URINE AUTO NEGATIVE (NEGATIVE); BLOOD, URINE BLOOD 3+ (NEGATIVE); CALCIUM OXALATE CRYSTALS SMALL; COLOR, URINE YELLOW (YELLOW); GLUCOSE, URINE (UA) AUTO 3+ mg/dL (NEGATIVE); KETONE, URINE AUTO NEGATIVE (NEGATIVE); LEUKOCYTE ESTERASE, URINE AUTO NEGATIVE (NEGATIVE); MUCUS, URINE MODERATE (NEGATIVE); NITRITE, URINE AUTO NEGATIVE (NEGATIVE); PROTEIN, URINE AUTO 2+ mg/dL (NEGATIVE); RBC, URINE AUTO TNTC /HPF (0-3); SPECIFIC GRAVITY URINE AUTO 1.026 (1.002-1.035); SQUAMOUS EPITHELIAL CELL UR AU 0 /HPF (0-6); UROBILINOGEN, URINE AUTO 0.2 mg/dL (0.0-2.0); WBC, URINE AUTO 4 /HPF (0-3)
== END ==
LOC: M LAB REF 12:19
PROVIDERS: ATTEND Family Medicine
DX: Z01.818 Encounter for other preprocedural examination (principal); Z79.01 Long term (current) use of anticoagulants

== ENCOUNTER → 2020-04-14 | Outpatient (CLI) | payer MEDICARE ==
--- NOTE | 2020-04-14 10:04 | REP ---
INDICATION: PNEUMONIA, SOB. COMPARISON: Chest x-ray 03/31/2019, 03/18/2017; CT 03/18/2017 TECHNIQUE: Two views FINDINGS: Lungs are hyperinflated with underlying interstitial changes. There is cardiomegaly with left atrial and left ventricular enlargement. Is a loop recorder of the anterior left chest wall subcutaneous fat. There is an opacity in the left midlung zone which on lateral view appears to be posterior to the major fissure suggesting left lower lobe infiltrate or lesion. Heavier fibrotic changes are seen in the posterior left lower lobe in the retrocardiac region. No gross effusion. The right lung show no definite infiltrate nodule or mass. There is some venous hypertension without clau edema as the vessel margins are still distinct. Tortuous aorta is unchanged. The airway is intact. Bony thorax shows degenerative changes throughout the thoracic spine without acute compression deformity. IMPRESSION: : 1. New opacity in the left lower lung zone probably in the left lower lobe behind the major fissure based on the lateral view. Underlying fibrosis and COPD. Although this appearance is similar to areas seen on previous chest x-rays and CTs in the both lower lobes, it is new and may reflect a infiltrate or underlying new lung lesion. Radiographic follow-up after treatment recommended and if not clearing, consider CT. 2. Cardiomegaly with left atrial and ventricular enlargement and some pulmonary venous hypertension without interstitial edema or pleural effusion visible. 3. Tortuous calcified aorta unchanged. Diffuse degenerative changes throughout the spine without acute compression deformity. <Electronically signed by Joel Weinstein > 04/14/20 1000
== END ==
LOC: M WUC 09:10
PROVIDERS: ATTEND Physician Assistant
DX: J18.9 Pneumonia, unspecified organism (principal); R06.02 Shortness of breath; I51.7 Cardiomegaly; J44.9 Chronic obstructive pulmonary disease, unspecified; J84.10 Pulmonary fibrosis, unspecified

== ENCOUNTER → 2020-07-12 | Outpatient (CLI) | payer MEDICARE ==
--- NOTE | 2020-07-12 16:13 | REP ---
INDICATION: ORGANIZING PNEUMONIA. COMPARISON: Comparison chest x-ray 14 April 2020. TECHNIQUE: Three views... FINDINGS: Lungs are somewhat hyperinflated overall with flattening of the hemidiaphragms unchanged. The there are degenerative changes in the thoracic spine. A loop recorder is seen in the precordial soft tissues. Heart is mildly enlarged. No infiltrate is seen. The pleural angles are sharp. There is some pleural thickening on the right. There is no acute bony or pulmonary parenchymal abnormality. IMPRESSION: Hyperinflation. Mildly prominent heart. Loop recorder. Otherwise no acute disease. The opacity seen in the left perihilar region on the prior study has resolved.. <Electronically signed by Joce Sullivan > 07/12/20 [id number]
== END ==
LOC: M WUC 14:10
PROVIDERS: ATTEND Internal Medicine Critical Care Medicine
DX: J98.4 Other disorders of lung (principal); Z95.818 Presence of other cardiac implants and grafts

== ENCOUNTER → 2021-02-17 | Outpatient (REF) | payer MEDICARE ==
[~2021-02-17] MED LIST changes: +GLIM1TAB4 PO; +ISOS1TAB35 PO; +METF500T13 PO
[2021-02-17 17:45] LABS: PHOSPHORUS LEVEL 2.9 MG/DL (2.5-4.9); URIC ACID 6.1 MG/DL (3.5-7.2)
== END ==
LOC: M LAB REF 16:36
PROVIDERS: ATTEND Family Medicine
DX: N20.0 Calculus of kidney (principal)

== ENCOUNTER 2021-06-24 11:22 | Inpatient (IN) | payer MEDICARE ==
[~2021-06-24] VITALS: Ht 177.8 cm; Wt 162.0 kg
[~2021-06-24 11:22] MED LIST changes: -BENA40TA5 PO; +BENA40TA84 PO; +PERC5TAB12 PO
[2021-06-24 13:00] LABS: BASO % 0.1 % (0.0-1.0); HEMATOCRIT 35.4 % (42.0-52.0); HEMOGLOBIN 11.7 g/dl (13.5-17.5); LYMPH # 0.4 10^3/uL (1.5-5.0); LYMPH % 4.7 % (24.0-44.0); MEAN CORPUSCULAR HEMOGLOBIN 31.3 pg (27.0-33.0); MEAN CORPUSCULAR HGB CONC 33.1 g/dl (32.0-36.5); MEAN CORPUSCULAR VOLUME 94.7 fl (80.0-96.0); MONO # 0.3 10^3/uL (0.0-0.8); MONO % 3.7 % (2.0-8.0); NEUTROPHILS # 7.8 10^3/uL (1.5-8.5); PLATELET COUNT, AUTOMATED 189 10^3/uL (150-450); RED BLOOD COUNT 3.74 10^6/uL (4.30-6.10); WHITE BLOOD COUNT 8.6 10^3/uL (4.0-10.0)
[2021-06-24 13:26] LABS: INR 1.16; PROTHROMBIN TIME 15.2 SECONDS (12.7-14.5)
[2021-06-24 13:28] LABS: CK-MB VALUE MASS 5.2 NG/ML (<3.6); MB/CK RELATIVE INDEX 3.31 (< OR =4)
[2021-06-24 13:45] LABS: ALBUMIN 3.8 GM/DL (3.2-5.2); BILIRUBIN,DIRECT 0.2 MG/DL (0.0-0.2); BILIRUBIN,TOTAL 0.6 MG/DL (0.2-1.0); C REACTIVE PROTEIN QUANTITATIV 4.05 MG/DL (0.00-0.30); CALCIUM LEVEL 9.8 MG/DL (8.8-10.2); CREATININE FOR GFR 2.02 MG/DL (0.70-1.30); FREE T4 1.59 NG/DL (0.76-1.46); GLOMERULAR FILTRATION RATE 35.2 (>49); POTASSIUM SERUM 5.4 MEQ/L (3.5-5.1); THYROID STIMULATING HORMONE 0.299 uIU/ML (0.358-3.740); TOTAL PROTEIN 7.5 GM/DL (6.4-8.2)
[2021-06-24] MEDS ORDERED: NS 1,000 ML IV ONE (14:05)
[2021-06-24 14:10] LABS: ERYTHROCYTE SEDIMENTATION RATE 63 mm/hr (0-20)
[2021-06-24] MEDS ORDERED: LISI30TA4 PO (15:09)
[2021-06-24] MEDS ORDERED: BACTDSTA PO (15:09)
[2021-06-24] MEDS ORDERED: CALCCAP4 PO (15:09)
[2021-06-24] MEDS ORDERED: CARV25TA PO (15:09)
[2021-06-24] MEDS ORDERED: TIZA10TA PO (15:09)
[2021-06-24] MEDS ORDERED: TRAM50TA2 PO (15:09)
[2021-06-24] MEDS ORDERED: PRED5TA PO (15:09)
[2021-06-24] MEDS ORDERED: HOME MED LIST COMPLETE! XX SCH (15:10)
[2021-06-24] MEDS ORDERED: MAALOX 30 ML SUSP *UDC PO PRN (16:50)
[2021-06-24] MEDS ORDERED: GLUCAGON INJ 1MG VIAL SC PRN (16:50)
[2021-06-24] MEDS ORDERED: ALBUTEROL 90 MCG/ACT 8GM HFA INHALER INH PRN (16:50)
[2021-06-24] MEDS ORDERED: GLUCOSE 4GM CHEW TABLET PO PRN (16:50)
[2021-06-24] MEDS ORDERED: tiZANidine 4 MG TAB PO PRN (16:50)
[2021-06-24] MEDS ORDERED: DEXTROSE 50% 50 ML SYRINGE IV PRN (16:50)
[2021-06-24] MEDS ORDERED: MOM 30ML SUSPENSION UDC PO PRN (16:50)
[2021-06-24] MEDS: HumaLOG INSULIN (NovoLOG) PER UNIT SC SCH ×2 (17:30→20:38)
[2021-06-24] MEDS ORDERED: PILL CUTTER 1 EACH XX PRN (18:35)
[2021-06-24] MEDS: ATORVASTATIN 20 MG TAB PO SCH (20:39)
[2021-06-24] MEDS: APIXABAN 5 MG TAB (ELIQUIS) PO SCH (20:39)
[2021-06-24] MEDS: CARVedilol 12.5 MG TAB PO SCH (20:39)
[2021-06-24] MEDS: PERCOCET 5MG/325MG TAB PO SCH ×2 (20:40→23:57)
[2021-06-24 21:06] VITALS: BP 136/69
[2021-06-24] MEDS: NYSTATIN 100,000 UNITS/GM TOPICAL PWD 15 GM TOP PRN (22:09)
[2021-06-25 06:00] VITALS: BP 140/74
[2021-06-25] MEDS: PERCOCET 5MG/325MG TAB PO SCH ×3 (06:11→17:06)
[2021-06-25 06:38] LABS: BASO % 0.2 % (0.0-1.0); EOS # 0.1 10^3/uL (0.0-0.5); EOS % 1.4 % (0.0-3.0); HEMATOCRIT 33.9 % (42.0-52.0); LYMPH # 1.5 10^3/uL (1.5-5.0); LYMPH % 18.9 % (24.0-44.0); MEAN CORPUSCULAR HGB CONC 32.4 g/dl (32.0-36.5); MEAN CORPUSCULAR VOLUME 95.5 fl (80.0-96.0); MONO # 0.7 10^3/uL (0.0-0.8); NEUTROPHILS # 5.6 10^3/uL (1.5-8.5); NEUTROPHILS % 69.9 % (36.0-66.0); PLATELET COUNT, AUTOMATED 184 10^3/uL (150-450); RED BLOOD COUNT 3.55 10^6/uL (4.30-6.10)
[2021-06-25 07:06] LABS: CALCIUM LEVEL 9.2 MG/DL (8.8-10.2); CREATININE FOR GFR 1.78 MG/DL (0.70-1.30); GLOMERULAR FILTRATION RATE 40.8 (>49); POTASSIUM SERUM 4.8 MEQ/L (3.5-5.1)
[2021-06-25] MEDS: HumaLOG INSULIN (NovoLOG) PER UNIT SC SCH ×4 (07:12→20:10)
[2021-06-25] MEDS: CARVedilol 12.5 MG TAB PO SCH ×2 (08:46→20:14)
[2021-06-25] MEDS: predniSONE 5 MG TAB PO SCH (08:50)
[2021-06-25] MEDS: ASPIRIN 81MG ENTERIC TABLET PO SCH (08:51)
[2021-06-25] MEDS: APIXABAN 5 MG TAB (ELIQUIS) PO SCH ×2 (08:52→20:15)
[2021-06-25] MEDS: ISOSORBIDE MON. (IMDUR) 30 MG XR TAB PO SCH (09:00)
[2021-06-25 09:14] VITALS: BP 96/50
[2021-06-25] MEDS: NYSTATIN 100,000 UNITS/GM TOPICAL PWD 15 GM TOP PRN (09:57)
[2021-06-25 12:52] VITALS: BP 100/58
[2021-06-25] MEDS ORDERED: PERCOCET PO (13:25)
[2021-06-25 14:00] VITALS: BP 136/59
[2021-06-25] MEDS: ATORVASTATIN 20 MG TAB PO SCH (20:14)
[2021-06-25 22:00] VITALS: BP 129/60
[2021-06-26] MEDS: PERCOCET 5MG/325MG TAB PO SCH ×4 (00:46→17:11)
[2021-06-26] MEDS: HumaLOG INSULIN (NovoLOG) PER UNIT SC SCH ×4 (07:10→21:00)
[2021-06-26 07:51] VITALS: BP 148/70
[2021-06-26] MEDS: ASPIRIN 81MG ENTERIC TABLET PO SCH (08:12)
[2021-06-26] MEDS: ISOSORBIDE MON. (IMDUR) 30 MG XR TAB PO SCH (08:13)
[2021-06-26] MEDS: CARVedilol 12.5 MG TAB PO SCH ×2 (08:13→20:50)
[2021-06-26] MEDS: APIXABAN 5 MG TAB (ELIQUIS) PO SCH ×2 (08:13→20:50)
[2021-06-26] MEDS: predniSONE 5 MG TAB PO SCH (08:14)
[2021-06-26 10:37] LABS: HEMATOCRIT 32.6 % (42.0-52.0); HEMOGLOBIN 10.7 g/dl (13.5-17.5); MEAN CORPUSCULAR HEMOGLOBIN 30.8 pg (27.0-33.0); MEAN CORPUSCULAR HGB CONC 32.8 g/dl (32.0-36.5); MEAN CORPUSCULAR VOLUME 93.9 fl (80.0-96.0); PLATELET COUNT, AUTOMATED 185 10^3/uL (150-450); RED BLOOD COUNT 3.47 10^6/uL (4.30-6.10); WHITE BLOOD COUNT 9.2 10^3/uL (4.0-10.0)
[2021-06-26 10:59] LABS: CALCIUM LEVEL 8.8 MG/DL (8.8-10.2); CREATININE FOR GFR 1.44 MG/DL (0.70-1.30); GLOMERULAR FILTRATION RATE 52.1 (>49); POTASSIUM SERUM 4.9 MEQ/L (3.5-5.1)
[2021-06-26 14:00] VITALS: BP 120/57
[2021-06-26] MEDS: ATORVASTATIN 20 MG TAB PO SCH (20:49)
[2021-06-26 23:17] VITALS: BP 147/69
[2021-06-27] MEDS: PERCOCET 5MG/325MG TAB PO SCH ×4 (00:01→17:16)
[2021-06-27 05:59] LABS: HEMATOCRIT 32.3 % (42.0-52.0); HEMOGLOBIN 10.5 g/dl (13.5-17.5); MEAN CORPUSCULAR HGB CONC 32.5 g/dl (32.0-36.5); MEAN CORPUSCULAR VOLUME 95.3 fl (80.0-96.0); PLATELET COUNT, AUTOMATED 148 10^3/uL (150-450); RED BLOOD COUNT 3.39 10^6/uL (4.30-6.10); WHITE BLOOD COUNT 8.1 10^3/uL (4.0-10.0)
[2021-06-27 06:22] LABS: BLOOD UREA NITROGEN 33 MG/DL (7-18); CARBON DIOXIDE LEVEL 25 MEQ/L (21-32); CHLORIDE LEVEL 111 MEQ/L (98-107); CREATININE FOR GFR 1.15 MG/DL (0.70-1.30); GLOMERULAR FILTRATION RATE > 60.0 (>49); GLUCOSE, FASTING 106 MG/DL (70-100); POTASSIUM SERUM 4.8 MEQ/L (3.5-5.1); SODIUM LEVEL 141 MEQ/L (136-145)
[2021-06-27 07:02] VITALS: BP 141/68
[2021-06-27] MEDS: HumaLOG INSULIN (NovoLOG) PER UNIT SC SCH ×4 (07:59→21:00)
[2021-06-27] MEDS: BACTRIM 160MG/800MG DS TAB PO SCH (08:54)
[2021-06-27] MEDS: APIXABAN 5 MG TAB (ELIQUIS) PO SCH ×2 (08:54→21:19)
[2021-06-27] MEDS: ISOSORBIDE MON. (IMDUR) 30 MG XR TAB PO SCH (08:54)
[2021-06-27] MEDS: ASPIRIN 81MG ENTERIC TABLET PO SCH (08:54)
[2021-06-27] MEDS: predniSONE 5 MG TAB PO SCH (08:55)
[2021-06-27] MEDS: CARVedilol 12.5 MG TAB PO SCH ×2 (08:55→21:20)
[2021-06-27 14:00] VITALS: BP 130/68
[2021-06-27] MEDS: ATORVASTATIN 20 MG TAB PO SCH (21:18)
[2021-06-27] MEDS: ACETAMINOPHEN TAB 650MG DOSE (2X325MG) PO PRN (21:19)
[2021-06-27 22:00] VITALS: BP 137/69
[2021-06-28] MEDS: PERCOCET 5MG/325MG TAB PO SCH ×4 (00:15→17:33)
[2021-06-28] MEDS: ACETAMINOPHEN TAB 650MG DOSE (2X325MG) PO PRN ×2 (04:38→08:59)
[2021-06-28 05:45] VITALS: BP 141/64
[2021-06-28 06:45] LABS: HEMOGLOBIN 10.2 g/dl (13.5-17.5); MEAN CORPUSCULAR HGB CONC 32.9 g/dl (32.0-36.5); MEAN CORPUSCULAR VOLUME 94.2 fl (80.0-96.0); PLATELET COUNT, AUTOMATED 178 10^3/uL (150-450); RED BLOOD COUNT 3.29 10^6/uL (4.30-6.10); WHITE BLOOD COUNT 8.7 10^3/uL (4.0-10.0)
[2021-06-28 07:09] LABS: BLOOD UREA NITROGEN 26 MG/DL (7-18); CALCIUM LEVEL 9.3 MG/DL (8.8-10.2); CARBON DIOXIDE LEVEL 27 MEQ/L (21-32); CHLORIDE LEVEL 106 MEQ/L (98-107); CREATININE FOR GFR 1.17 MG/DL (0.70-1.30); GLOMERULAR FILTRATION RATE > 60.0 (>49); GLUCOSE, FASTING 94 MG/DL (70-100); POTASSIUM SERUM 4.6 MEQ/L (3.5-5.1); SODIUM LEVEL 136 MEQ/L (136-145)
[2021-06-28] MEDS: HumaLOG INSULIN (NovoLOG) PER UNIT SC SCH ×5 (07:30→21:00)
[2021-06-28] MEDS: ASPIRIN 81MG ENTERIC TABLET PO SCH (09:00)
[2021-06-28] MEDS: APIXABAN 5 MG TAB (ELIQUIS) PO SCH ×2 (09:00→21:03)
[2021-06-28] MEDS: predniSONE 5 MG TAB PO SCH (09:01)
[2021-06-28] MEDS: ISOSORBIDE MON. (IMDUR) 30 MG XR TAB PO SCH (09:03)
[2021-06-28] MEDS: CARVedilol 12.5 MG TAB PO SCH ×2 (09:03→20:59)
[2021-06-28] MEDS ORDERED: MORPHINE 2 MG/ML 1ML VIAL (J2270) IV ONE (13:45)
[2021-06-28 14:00] VITALS: BP 133/66
[2021-06-28] MEDS ORDERED: PERCOCET 5MG/325MG TAB PO PRN (18:35)
[2021-06-28] MEDS ORDERED: ACETAMINOPHEN TAB 650MG DOSE (2X325MG) PO PRN (18:35)
[2021-06-28] MEDS: ATORVASTATIN 20 MG TAB PO SCH (20:59)
[2021-06-28] MEDS: PERCOCET 5MG/325MG TAB PO PRN (21:04)
[2021-06-28 22:00] VITALS: BP 138/68
[2021-06-29 05:47] LABS: HEMATOCRIT 32.3 % (42.0-52.0); HEMOGLOBIN 10.7 g/dl (13.5-17.5); MEAN CORPUSCULAR HEMOGLOBIN 31.1 pg (27.0-33.0); MEAN CORPUSCULAR HGB CONC 33.1 g/dl (32.0-36.5); MEAN CORPUSCULAR VOLUME 93.9 fl (80.0-96.0); PLATELET COUNT, AUTOMATED 172 10^3/uL (150-450); RED BLOOD COUNT 3.44 10^6/uL (4.30-6.10)
[2021-06-29 06:00] VITALS: BP 141/78
[2021-06-29 06:11] LABS: BLOOD UREA NITROGEN 21 MG/DL (7-18); CALCIUM LEVEL 8.9 MG/DL (8.8-10.2); CARBON DIOXIDE LEVEL 27 MEQ/L (21-32); CHLORIDE LEVEL 108 MEQ/L (98-107); CREATININE FOR GFR 0.97 MG/DL (0.70-1.30); GLOMERULAR FILTRATION RATE > 60.0 (>49); GLUCOSE, FASTING 112 MG/DL (70-100); POTASSIUM SERUM 4.3 MEQ/L (3.5-5.1); SODIUM LEVEL 139 MEQ/L (136-145)
[2021-06-29] MEDS: HumaLOG INSULIN (NovoLOG) PER UNIT SC SCH ×2 (07:30→12:00)
[2021-06-29] MEDS: PERCOCET 5MG/325MG TAB PO PRN ×2 (07:37→13:45)
[2021-06-29] MEDS ORDERED: LEVEMIR (INSULIN DETEMIR) 1 UNITS/0.01ML SC SCH (09:00)
[2021-06-29] MEDS ORDERED: FUROSEMIDE 20 MG TAB PO SCH ×2 (09:00)
[2021-06-29 09:33] VITALS: BP 159/87
[2021-06-29] MEDS: CARVedilol 12.5 MG TAB PO SCH (09:33)
[2021-06-29] MEDS: BACTRIM 160MG/800MG DS TAB PO SCH (09:34)
[2021-06-29] MEDS: predniSONE 5 MG TAB PO SCH (09:35)
[2021-06-29] MEDS: ASPIRIN 81MG ENTERIC TABLET PO SCH (09:35)
[2021-06-29] MEDS: APIXABAN 5 MG TAB (ELIQUIS) PO SCH (09:35)
[2021-06-29] MEDS: ISOSORBIDE MON. (IMDUR) 30 MG XR TAB PO SCH (09:37)
[2021-06-29] MEDS ORDERED: diphenhydrAMINE CREAM 30GM TOP PRN (09:55)
[2021-06-29] MEDS ORDERED: FURO20TA2 PO (12:06)
[2021-06-29] MEDS ORDERED: PERCOCET PO ×2 (12:06)
[2021-06-29] MEDS ORDERED: INSUDET SC (12:06)
[2021-06-29] MEDS ORDERED: PERCOCET 5MG/325MG TAB PO PRN (18:00)
== END 2021-06-29 14:11 | disposition home or self-care (01) | DRG 683 ==
LOC: EDBD 11:22 → M ED 11:22 → M ED INP 11:23 → M MSPAV 20:05 → OBSVTOIN 06-27 17:38
PROVIDERS: ADMIT Internal Medicine; ATTEND Internal Medicine
DX: N17.9 Acute kidney failure, unspecified (principal); Z68.43 Body mass index [BMI] 50.0-59.9, adult; J84.89 Other specified interstitial pulmonary diseases; S42.201D Unspecified fracture of upper end of right humerus, subsequent encounter for fracture with routine healing; E66.9 Obesity, unspecified; E11.9 Type 2 diabetes mellitus without complications; E78.5 Hyperlipidemia, unspecified; I48.91 Unspecified atrial fibrillation; I10 Essential (primary) hypertension; I25.10 Atherosclerotic heart disease of native coronary artery without angina pectoris; Z95.2 Presence of prosthetic heart valve; Z79.01 Long term (current) use of anticoagulants; Z87.442 Personal history of urinary calculi; Z79.899 Other long term (current) drug therapy; Z79.82 Long term (current) use of aspirin; Z79.4 Long term (current) use of insulin; Z88.0 Allergy status to penicillin; Z87.891 Personal history of nicotine dependence

== ENCOUNTER 2021-06-29 10:14 | Inpatient (IN) | payer MEDICARE ==
[~2021-06-29] VITALS: Ht 177.8 cm; Wt 154.0 kg
[~2021-06-29 10:14] MED LIST changes: +BACTDSTA PO; +CALCCAP4 PO; +CARV25TA PO; +LISI30TA4 PO; +PERCOCET PO; +PRED5TA PO; +TIZA10TA PO; +TRAM50TA2 PO
[2021-06-29] MEDS ORDERED: DEXTROSE 50% 50 ML SYRINGE IV PRN (11:15)
[2021-06-29] MEDS ORDERED: ONDANSETRON 4 MG TAB PO PRN (11:15)
[2021-06-29] MEDS ORDERED: GLUCAGON INJ 1MG VIAL SC PRN (11:15)
[2021-06-29] MEDS ORDERED: BISACODYL 10 MG SUPP PR PRN (11:15)
[2021-06-29] MEDS ORDERED: diphenhydrAMINE 25MG CAP PO PRN (11:15)
[2021-06-29] MEDS ORDERED: GLUCOSE 4GM CHEW TABLET PO PRN (11:15)
[2021-06-29] MEDS ORDERED: HumaLOG INSULIN (NovoLOG) PER UNIT SC SCH ×2 (12:00→21:00)
[2021-06-29] MEDS ORDERED: INSUDET SC (12:06)
[2021-06-29] MEDS ORDERED: PERCOCET PO ×2 (12:06)
[2021-06-29] MEDS ORDERED: FURO20TA2 PO (12:06)
[2021-06-29 14:04] VITALS: BP 163/77
[2021-06-29] MEDS ORDERED: HOME MED LIST COMPLETE! XX SCH (14:10)
[2021-06-29] MEDS ORDERED: PILL CUTTER 1 EACH XX PRN (14:25)
[2021-06-29] MEDS: COMBIVENT RESPIMAT 100-20MCG INHALER 4GM INH SCH ×2 (15:24→20:00)
[2021-06-29] MEDS: REMEDY PHYTOPLEX Z-GUARD PASTE 113GM TUBE (FROM STOREROOM PRODUCT) TOP SCH ×2 (15:26→20:30)
[2021-06-29] MEDS: ACETAMINOPHEN 500 MG TAB PO SCH ×2 (15:26→20:29)
[2021-06-29 20:00] VITALS: BP 145/69
[2021-06-29] MEDS: APIXABAN 5 MG TAB (ELIQUIS) PO SCH (20:29)
[2021-06-29] MEDS: DOCUSATE SODIUM 100MG CAPSULE PO SCH (20:29)
[2021-06-29] MEDS: ATORVASTATIN 20 MG TAB PO SCH (20:29)
[2021-06-29] MEDS: NYSTATIN 100,000 UNITS/GM TOPICAL PWD 15 GM TOP SCH (20:29)
[2021-06-29] MEDS: SENNA 8.6 MG TAB (SENOKOT) PO SCH (20:30)
[2021-06-29] MEDS: CARVedilol 12.5 MG TAB PO SCH (20:30)
[2021-06-30 04:01] VITALS: BP 154/71
[2021-06-30] MEDS: COMBIVENT RESPIMAT 100-20MCG INHALER 4GM INH SCH ×3 (07:20→17:29)
[2021-06-30] MEDS ORDERED: GLIMEPIRIDE 1 MG TABLET PO SCH (07:30)
[2021-06-30] MEDS: GLIMEPIRIDE 1 MG TABLET PO SCH ×2 (07:38→17:44)
[2021-06-30] MEDS: DOCUSATE SODIUM 100MG CAPSULE PO SCH ×2 (07:39→20:26)
[2021-06-30] MEDS: FUROSEMIDE 40 MG TAB PO SCH (07:40)
[2021-06-30] MEDS: ISOSORBIDE MON. (IMDUR) 30 MG XR TAB PO SCH (07:40)
[2021-06-30] MEDS: PANTOPRAZOLE 40MG TAB (PROTONIX) PO SCH (07:40)
[2021-06-30] MEDS: ACETAMINOPHEN 500 MG TAB PO SCH ×3 (07:40→20:27)
[2021-06-30] MEDS: ASPIRIN 81MG ENTERIC TABLET PO SCH (07:41)
[2021-06-30] MEDS: CARVedilol 12.5 MG TAB PO SCH ×2 (07:41→20:26)
[2021-06-30] MEDS: predniSONE 5 MG TAB PO SCH (07:41)
[2021-06-30] MEDS: APIXABAN 5 MG TAB (ELIQUIS) PO SCH ×2 (07:41→20:25)
[2021-06-30] MEDS: REMEDY PHYTOPLEX Z-GUARD PASTE 113GM TUBE (FROM STOREROOM PRODUCT) TOP SCH ×3 (07:43→20:24)
[2021-06-30] MEDS: NYSTATIN 100,000 UNITS/GM TOPICAL PWD 15 GM TOP SCH ×2 (07:44→20:24)
[2021-06-30 08:43] LABS: BASO % 0.2 % (0.0-1.0); EOS # 0.2 10^3/uL (0.0-0.5); EOS % 1.7 % (0.0-3.0); HEMATOCRIT 32.4 % (42.0-52.0); HEMOGLOBIN 10.8 g/dl (13.5-17.5); LYMPH # 1.5 10^3/uL (1.5-5.0); LYMPH % 16.8 % (24.0-44.0); MEAN CORPUSCULAR HEMOGLOBIN 30.9 pg (27.0-33.0); MEAN CORPUSCULAR HGB CONC 33.3 g/dl (32.0-36.5); MEAN CORPUSCULAR VOLUME 92.8 fl (80.0-96.0); MONO # 0.6 10^3/uL (0.0-0.8); MONO % 6.8 % (2.0-8.0); NEUTROPHILS # 6.6 10^3/uL (1.5-8.5); NEUTROPHILS % 73.9 % (36.0-66.0); PLATELET COUNT, AUTOMATED 178 10^3/uL (150-450); RED BLOOD COUNT 3.49 10^6/uL (4.30-6.10); WHITE BLOOD COUNT 8.9 10^3/uL (4.0-10.0)
[2021-06-30 09:08] LABS: ALBUMIN 3.1 GM/DL (3.2-5.2); ALT/SGPT 17 U/L (12-78); BILIRUBIN,TOTAL 0.5 MG/DL (0.2-1.0); BLOOD UREA NITROGEN 22 MG/DL (7-18); CALCIUM LEVEL 9.1 MG/DL (8.8-10.2); CARBON DIOXIDE LEVEL 27 MEQ/L (21-32); CHLORIDE LEVEL 106 MEQ/L (98-107); GLOMERULAR FILTRATION RATE > 60.0 (>49); GLUCOSE, FASTING 122 MG/DL (70-100); POTASSIUM SERUM 3.9 MEQ/L (3.5-5.1); SODIUM LEVEL 139 MEQ/L (136-145); TOTAL PROTEIN 7.2 GM/DL (6.4-8.2)
[2021-06-30] MEDS: oxyCODONE 5MG TAB PO PRN ×2 (13:02→20:26)
[2021-06-30 14:00] VITALS: BP 137/71
[2021-06-30 20:00] VITALS: BP 158/76
[2021-06-30] MEDS: MUPIROCIN 2% OINT 22 GM TUBE TOP SCH (20:25)
[2021-06-30] MEDS: ATORVASTATIN 20 MG TAB PO SCH (20:26)
[2021-06-30] MEDS: SENNA 8.6 MG TAB (SENOKOT) PO SCH (20:26)
[2021-07-01 06:00] VITALS: BP 152/69
[2021-07-01] MEDS: oxyCODONE 5MG TAB PO PRN ×2 (06:01→13:22)
[2021-07-01] MEDS: COMBIVENT RESPIMAT 100-20MCG INHALER 4GM INH SCH ×3 (07:13→17:16)
[2021-07-01] MEDS: GLIMEPIRIDE 1 MG TABLET PO SCH ×3 (07:30→17:50)
[2021-07-01] MEDS: ACETAMINOPHEN 500 MG TAB PO SCH ×3 (08:18→20:52)
[2021-07-01] MEDS: FUROSEMIDE 40 MG TAB PO SCH (08:18)
[2021-07-01] MEDS: CARVedilol 12.5 MG TAB PO SCH ×2 (08:19→20:52)
[2021-07-01] MEDS: ASPIRIN 81MG ENTERIC TABLET PO SCH (08:21)
[2021-07-01] MEDS: PANTOPRAZOLE 40MG TAB (PROTONIX) PO SCH (08:22)
[2021-07-01] MEDS: ISOSORBIDE MON. (IMDUR) 30 MG XR TAB PO SCH (08:22)
[2021-07-01] MEDS: predniSONE 5 MG TAB PO SCH (08:22)
[2021-07-01] MEDS: APIXABAN 5 MG TAB (ELIQUIS) PO SCH ×2 (08:22→20:52)
[2021-07-01] MEDS: NYSTATIN 100,000 UNITS/GM TOPICAL PWD 15 GM TOP SCH ×2 (08:29→20:53)
[2021-07-01] MEDS: MUPIROCIN 2% OINT 22 GM TUBE TOP SCH ×2 (08:30→20:53)
[2021-07-01] MEDS: REMEDY PHYTOPLEX Z-GUARD PASTE 113GM TUBE (FROM STOREROOM PRODUCT) TOP SCH ×3 (08:32→21:00)
[2021-07-01] MEDS: DOCUSATE SODIUM 100MG CAPSULE PO SCH ×2 (09:00→20:53)
[2021-07-01] MEDS ORDERED: BACTRIM 160MG/800MG DS TAB PO SCH (09:00)
[2021-07-01 09:27] LABS: BASO % 0.3 % (0.0-1.0); EOS # 0.2 10^3/uL (0.0-0.5); EOS % 2.1 % (0.0-3.0); HEMATOCRIT 32.6 % (42.0-52.0); HEMOGLOBIN 10.9 g/dl (13.5-17.5); LYMPH # 1.3 10^3/uL (1.5-5.0); LYMPH % 14.9 % (24.0-44.0); MEAN CORPUSCULAR HEMOGLOBIN 30.9 pg (27.0-33.0); MEAN CORPUSCULAR HGB CONC 33.4 g/dl (32.0-36.5); MEAN CORPUSCULAR VOLUME 92.4 fl (80.0-96.0); MONO # 0.6 10^3/uL (0.0-0.8); MONO % 7.1 % (2.0-8.0); NEUTROPHILS # 6.8 10^3/uL (1.5-8.5); PLATELET COUNT, AUTOMATED 186 10^3/uL (150-450); RED BLOOD COUNT 3.53 10^6/uL (4.30-6.10)
[2021-07-01 09:51] LABS: BLOOD UREA NITROGEN 26 MG/DL (7-18); CALCIUM LEVEL 8.9 MG/DL (8.8-10.2); CARBON DIOXIDE LEVEL 23 MEQ/L (21-32); CHLORIDE LEVEL 104 MEQ/L (98-107); CREATININE FOR GFR 1.13 MG/DL (0.70-1.30); GLOMERULAR FILTRATION RATE > 60.0 (>49); GLUCOSE, FASTING 176 MG/DL (70-100); POTASSIUM SERUM 4.1 MEQ/L (3.5-5.1); SODIUM LEVEL 136 MEQ/L (136-145)
[2021-07-01 14:00] VITALS: BP 141/71
[2021-07-01 19:58] VITALS: BP 181/84
[2021-07-01 20:01] VITALS: BP 152/78
[2021-07-01] MEDS: ATORVASTATIN 20 MG TAB PO SCH (20:52)
[2021-07-01] MEDS: SENNA 8.6 MG TAB (SENOKOT) PO SCH (20:53)
[2021-07-02] MEDS: oxyCODONE 5MG TAB PO PRN ×2 (05:02→10:44)
[2021-07-02 05:05] VITALS: BP 190/86
[2021-07-02 06:00] VITALS: BP 156/70
[2021-07-02] MEDS: COMBIVENT RESPIMAT 100-20MCG INHALER 4GM INH SCH ×3 (07:26→20:40)
[2021-07-02] MEDS: DOCUSATE SODIUM 100MG CAPSULE PO SCH ×2 (07:34→20:27)
[2021-07-02] MEDS: PANTOPRAZOLE 40MG TAB (PROTONIX) PO SCH (07:38)
[2021-07-02] MEDS: FUROSEMIDE 40 MG TAB PO SCH (07:39)
[2021-07-02] MEDS: ASPIRIN 81MG ENTERIC TABLET PO SCH (07:39)
[2021-07-02] MEDS: APIXABAN 5 MG TAB (ELIQUIS) PO SCH ×2 (07:39→20:26)
[2021-07-02] MEDS: predniSONE 5 MG TAB PO SCH (07:39)
[2021-07-02] MEDS: GLIMEPIRIDE 1 MG TABLET PO SCH ×2 (07:39→16:34)
[2021-07-02] MEDS: CARVedilol 12.5 MG TAB PO SCH ×2 (07:39→20:27)
[2021-07-02] MEDS: ACETAMINOPHEN 500 MG TAB PO SCH ×3 (07:40→20:26)
[2021-07-02] MEDS: ISOSORBIDE MON. (IMDUR) 30 MG XR TAB PO SCH (07:40)
[2021-07-02] MEDS: MUPIROCIN 2% OINT 22 GM TUBE TOP SCH ×2 (07:41→20:27)
[2021-07-02] MEDS: NYSTATIN 100,000 UNITS/GM TOPICAL PWD 15 GM TOP SCH ×2 (07:42→20:28)
[2021-07-02] MEDS: REMEDY PHYTOPLEX Z-GUARD PASTE 113GM TUBE (FROM STOREROOM PRODUCT) TOP SCH ×3 (07:42→20:28)
[2021-07-02 14:00] VITALS: BP 125/58
[2021-07-02 20:00] VITALS: BP 140/68
[2021-07-02] MEDS: ATORVASTATIN 20 MG TAB PO SCH (20:26)
[2021-07-02] MEDS: SENNA 8.6 MG TAB (SENOKOT) PO SCH (20:27)
[2021-07-03] MEDS: oxyCODONE 5MG TAB PO PRN (04:07)
[2021-07-03 06:00] VITALS: BP 152/80
[2021-07-03] MEDS: COMBIVENT RESPIMAT 100-20MCG INHALER 4GM INH SCH (07:18)
[2021-07-03] MEDS: DOCUSATE SODIUM 100MG CAPSULE PO SCH (07:51)
[2021-07-03] MEDS ORDERED: ASPI-546 PO (08:19)
[2021-07-03] MEDS ORDERED: GLIM1TAB4 PO (08:19)
[2021-07-03] MEDS ORDERED: ISOS1TAB35 PO (08:19)
[2021-07-03] MEDS ORDERED: FURO20TA2 PO (08:19)
[2021-07-03] MEDS ORDERED: ELIQ5TAB PO (08:19)
[2021-07-03] MEDS ORDERED: ATOR40TA75 PO (08:19)
[2021-07-03] MEDS ORDERED: VENTAER INH (08:19)
[2021-07-03] MEDS ORDERED: CARV25TA PO (08:19)
[2021-07-03] MEDS ORDERED: PERCOCET PO (08:20)
[2021-07-03] MEDS: FUROSEMIDE 40 MG TAB PO SCH (08:35)
[2021-07-03] MEDS: PANTOPRAZOLE 40MG TAB (PROTONIX) PO SCH (08:35)
[2021-07-03] MEDS: APIXABAN 5 MG TAB (ELIQUIS) PO SCH (08:35)
[2021-07-03] MEDS: GLIMEPIRIDE 1 MG TABLET PO SCH (08:36)
[2021-07-03] MEDS: ISOSORBIDE MON. (IMDUR) 30 MG XR TAB PO SCH (08:36)
[2021-07-03] MEDS: predniSONE 5 MG TAB PO SCH (08:36)
[2021-07-03] MEDS: ACETAMINOPHEN 500 MG TAB PO SCH (08:36)
[2021-07-03 08:37] VITALS: BP 152/80
[2021-07-03] MEDS: REMEDY PHYTOPLEX Z-GUARD PASTE 113GM TUBE (FROM STOREROOM PRODUCT) TOP SCH (08:37)
[2021-07-03] MEDS: ASPIRIN 81MG ENTERIC TABLET PO SCH (08:37)
[2021-07-03] MEDS: MUPIROCIN 2% OINT 22 GM TUBE TOP SCH (08:37)
[2021-07-03] MEDS: NYSTATIN 100,000 UNITS/GM TOPICAL PWD 15 GM TOP SCH (08:37)
[2021-07-03] MEDS: CARVedilol 12.5 MG TAB PO SCH (08:37)
== END 2021-07-03 09:55 | disposition home or self-care (01) | DRG 561 ==
LOC: M PM&R 13:55
PROVIDERS: ADMIT Physical Medicine & Rehabilitation; ATTEND Physical Medicine & Rehabilitation
DX: S42.211D Unspecified displaced fracture of surgical neck of right humerus, subsequent encounter for fracture with routine healing (principal); J84.89 Other specified interstitial pulmonary diseases; S42.301D Unspecified fracture of shaft of humerus, right arm, subsequent encounter for fracture with routine healing; I10 Essential (primary) hypertension; I25.10 Atherosclerotic heart disease of native coronary artery without angina pectoris; I48.91 Unspecified atrial fibrillation; E11.9 Type 2 diabetes mellitus without complications; Z74.09 Other reduced mobility; Z74.1 Need for assistance with personal care; Z79.01 Long term (current) use of anticoagulants; Z79.82 Long term (current) use of aspirin; Z79.4 Long term (current) use of insulin; Z79.52 Long term (current) use of systemic steroids; Z79.899 Other long term (current) drug therapy; Z88.0 Allergy status to penicillin; Z90.49 Acquired absence of other specified parts of digestive tract; Z87.891 Personal history of nicotine dependence

== ENCOUNTER 2021-11-10 11:39 | Inpatient (IN) | payer MEDICARE ==
[~2021-11-10] VITALS: Ht 182.9 cm; Wt 161.0 kg
[~2021-11-10 11:39] MED LIST changes: +FURO20TA2 PO; +INSUDET SC
[2021-11-10] MEDS ORDERED: HYDR-4571 PO (12:12)
[2021-11-10] MEDS ORDERED: PRED10PA PO (12:12)
[2021-11-10 13:16] LABS: BASO % 0.2 % (0.0-1.0); HEMATOCRIT 38.2 % (42.0-52.0); LYMPH # 0.5 10^3/uL (1.5-5.0); LYMPH % 6.3 % (24.0-44.0); MEAN CORPUSCULAR HEMOGLOBIN 31.9 pg (27.0-33.0); MEAN CORPUSCULAR VOLUME 93.9 fl (80.0-96.0); MONO # 0.6 10^3/uL (0.0-0.8); MONO % 7.2 % (2.0-8.0); NEUTROPHILS # 7.3 10^3/uL (1.5-8.5); NEUTROPHILS % 85.7 % (36.0-66.0); PLATELET COUNT, AUTOMATED 156 10^3/uL (150-450); RED BLOOD COUNT 4.07 10^6/uL (4.30-6.10); WHITE BLOOD COUNT 8.5 10^3/uL (4.0-10.0)
[2021-11-10 13:28] LABS: INR 1.14
[2021-11-10 13:39] LABS: ERYTHROCYTE SEDIMENTATION RATE 27 mm/hr (0-20)
[2021-11-10 13:42] LABS: CK-MB VALUE MASS 4.1 NG/ML (<3.6); MB/CK RELATIVE INDEX 2.47 (< OR =4)
[2021-11-10 13:53] LABS: ALBUMIN 3.6 GM/DL (3.2-5.2); ALT/SGPT 16 U/L (12-78); BILIRUBIN,DIRECT 0.3 MG/DL (0.0-0.2); BILIRUBIN,TOTAL 1.1 MG/DL (0.2-1.0); BLOOD UREA NITROGEN 23 MG/DL (7-18); C REACTIVE PROTEIN QUANTITATIV 0.62 MG/DL (0.00-0.30); CALCIUM LEVEL 8.7 MG/DL (8.8-10.2); CARBON DIOXIDE LEVEL 28 MEQ/L (21-32); CHLORIDE LEVEL 105 MEQ/L (98-107); CREATININE FOR GFR 1.16 MG/DL (0.70-1.30); GLOMERULAR FILTRATION RATE > 60.0 (>49); GLUCOSE, FASTING 144 MG/DL (70-100); NT-PRO BNP 167 PG/ML (<125); POTASSIUM SERUM 4.2 MEQ/L (3.5-5.1); SODIUM LEVEL 138 MEQ/L (136-145); THYROID STIMULATING HORMONE 0.553 uIU/ML (0.358-3.740); TOTAL PROTEIN 7.2 GM/DL (6.4-8.2); URIC ACID 6.2 MG/DL (3.5-7.2)
[2021-11-10] MEDS ORDERED: GABAPENTIN 300 MG CAP PO ONE (14:05)
[2021-11-10] MEDS ORDERED: FUROSEMIDE 40MG/4ML VIAL (J1940) IV ONE (14:05)
[2021-11-10 14:11] LABS: RSV AMPLIFICATION NEGATIVE (NEGATIVE)
[2021-11-10] MEDS ORDERED: DEXTROSE 50% 50 ML SYRINGE IV PRN (16:40)
[2021-11-10] MEDS ORDERED: GLUCAGON INJ 1MG VIAL SC PRN (16:40)
[2021-11-10] MEDS ORDERED: GLUCOSE 4GM CHEW TABLET PO PRN (16:40)
[2021-11-10] MEDS ORDERED: MOM 30ML SUSPENSION UDC PO PRN (16:40)
[2021-11-10] MEDS ORDERED: ACETAMINOPHEN TAB 650MG DOSE (2X325MG) PO PRN (16:40)
[2021-11-10] MEDS ORDERED: MAALOX 30 ML SUSP *UDC PO PRN (16:40)
[2021-11-10] MEDS ORDERED: INSULIN LISPRO (NovoLOG) PER UNIT SC SCH ×2 (17:30→21:00)
[2021-11-10] MEDS ORDERED: GLIM1TAB4 PO (17:44)
[2021-11-10] MEDS ORDERED: PRED5TA PO (17:44)
[2021-11-10] MEDS ORDERED: HOME MED LIST COMPLETE! XX SCH (17:45)
[2021-11-10 19:08] LABS: CK-MB VALUE MASS 4.1 NG/ML (<3.6); MB/CK RELATIVE INDEX 2.66 (< OR =4)
[2021-11-10 21:16] VITALS: BP 158/80
[2021-11-10] MEDS: GABAPENTIN 300 MG CAP PO SCH (21:29)
[2021-11-10] MEDS: ATORVASTATIN 20 MG TAB PO SCH (21:29)
[2021-11-10] MEDS: APIXABAN 5 MG TAB (ELIQUIS) PO SCH (21:29)
[2021-11-10] MEDS: CARVedilol 12.5 MG TAB PO SCH (21:30)
[2021-11-11 06:03] LABS: HEMATOCRIT 37.6 % (42.0-52.0); HEMOGLOBIN 12.4 g/dl (13.5-17.5); MEAN CORPUSCULAR HEMOGLOBIN 30.9 pg (27.0-33.0); MEAN CORPUSCULAR VOLUME 93.8 fl (80.0-96.0); PLATELET COUNT, AUTOMATED 149 10^3/uL (150-450); RED BLOOD COUNT 4.01 10^6/uL (4.30-6.10); WHITE BLOOD COUNT 8.9 10^3/uL (4.0-10.0)
[2021-11-11 06:17] VITALS: BP 152/84
[2021-11-11 06:40] LABS: BLOOD UREA NITROGEN 29 MG/DL (7-18); CALCIUM LEVEL 9.1 MG/DL (8.8-10.2); CARBON DIOXIDE LEVEL 34 MEQ/L (21-32); CHLORIDE LEVEL 102 MEQ/L (98-107); GLOMERULAR FILTRATION RATE > 60.0 (>49); GLUCOSE, FASTING 183 MG/DL (70-100); MAGNESIUM LEVEL 2.3 MG/DL (1.8-2.4); POTASSIUM SERUM 4.1 MEQ/L (3.5-5.1); SODIUM LEVEL 138 MEQ/L (136-145)
[2021-11-11] MEDS ORDERED: GLIMEPIRIDE 2 MG TAB PO SCH (08:00)
[2021-11-11] MEDS ORDERED: FUROSEMIDE 40MG/4ML VIAL (J1940) IV SCH (09:00)
[2021-11-11] MEDS: APIXABAN 5 MG TAB (ELIQUIS) PO SCH ×2 (09:24→20:16)
[2021-11-11] MEDS: CALCIUM/VITAMIN D 500 MG TAB PO SCH (09:25)
[2021-11-11] MEDS: predniSONE 5 MG TAB PO SCH (09:25)
[2021-11-11] MEDS: ISOSORBIDE MON. (IMDUR) 30MG XR TAB PO SCH (09:25)
[2021-11-11] MEDS: GABAPENTIN 300 MG CAP PO SCH ×2 (09:25→20:16)
[2021-11-11] MEDS: GLIMEPIRIDE 2 MG TAB PO SCH (09:26)
[2021-11-11] MEDS: ASPIRIN 81MG ENTERIC TABLET PO SCH (09:26)
[2021-11-11] MEDS: CARVedilol 12.5 MG TAB PO SCH ×2 (09:27→20:18)
[2021-11-11 14:00] VITALS: BP 158/86
[2021-11-11] MEDS: ATORVASTATIN 20 MG TAB PO SCH (20:16)
[2021-11-11] MEDS: NORCO, ANEXSIA 5/325MG TABLET (HYDROcodone/ACETAMINOPHEN) PO PRN (20:19)
[2021-11-12 06:00] VITALS: BP 150/82
[2021-11-12 06:10] LABS: HEMATOCRIT 38.9 % (42.0-52.0); HEMOGLOBIN 13.1 g/dl (13.5-17.5); MEAN CORPUSCULAR HEMOGLOBIN 31.6 pg (27.0-33.0); MEAN CORPUSCULAR HGB CONC 33.7 g/dl (32.0-36.5); MEAN CORPUSCULAR VOLUME 93.7 fl (80.0-96.0); PLATELET COUNT, AUTOMATED 141 10^3/uL (150-450); RED BLOOD COUNT 4.15 10^6/uL (4.30-6.10); WHITE BLOOD COUNT 8.9 10^3/uL (4.0-10.0)
[2021-11-12 06:29] LABS: BLOOD UREA NITROGEN 26 MG/DL (7-18); CALCIUM LEVEL 9.7 MG/DL (8.8-10.2); CARBON DIOXIDE LEVEL 28 MEQ/L (21-32); CHLORIDE LEVEL 103 MEQ/L (98-107); CREATININE FOR GFR 0.94 MG/DL (0.70-1.30); GLOMERULAR FILTRATION RATE > 60.0 (>49); GLUCOSE, FASTING 179 MG/DL (70-100); MAGNESIUM LEVEL 2.3 MG/DL (1.8-2.4); SODIUM LEVEL 137 MEQ/L (136-145)
[2021-11-12] MEDS: ASPIRIN 81MG ENTERIC TABLET PO SCH (08:34)
[2021-11-12] MEDS: GABAPENTIN 300 MG CAP PO SCH ×2 (08:34→22:08)
[2021-11-12] MEDS: CALCIUM/VITAMIN D 500 MG TAB PO SCH (08:34)
[2021-11-12] MEDS: APIXABAN 5 MG TAB (ELIQUIS) PO SCH ×2 (08:34→22:08)
[2021-11-12] MEDS: FUROSEMIDE 20 MG TAB PO SCH (08:34)
[2021-11-12] MEDS: GLIMEPIRIDE 2 MG TAB PO SCH (08:34)
[2021-11-12] MEDS: ISOSORBIDE MON. (IMDUR) 30MG XR TAB PO SCH (08:35)
[2021-11-12] MEDS: NORCO, ANEXSIA 5/325MG TABLET (HYDROcodone/ACETAMINOPHEN) PO PRN ×3 (08:35→22:09)
[2021-11-12] MEDS: predniSONE 5 MG TAB PO SCH (08:35)
[2021-11-12] MEDS: CARVedilol 12.5 MG TAB PO SCH ×2 (08:35→22:07)
[2021-11-12] MEDS: ATORVASTATIN 20 MG TAB PO SCH (22:08)
[2021-11-13 05:45] VITALS: BP 132/80
[2021-11-13 06:24] LABS: HEMATOCRIT 37.2 % (42.0-52.0); HEMOGLOBIN 12.6 g/dl (13.5-17.5); MEAN CORPUSCULAR HEMOGLOBIN 31.7 pg (27.0-33.0); MEAN CORPUSCULAR HGB CONC 33.9 g/dl (32.0-36.5); MEAN CORPUSCULAR VOLUME 93.5 fl (80.0-96.0); PLATELET COUNT, AUTOMATED 154 10^3/uL (150-450); RED BLOOD COUNT 3.98 10^6/uL (4.30-6.10); WHITE BLOOD COUNT 8.7 10^3/uL (4.0-10.0)
[2021-11-13 06:47] LABS: BLOOD UREA NITROGEN 21 MG/DL (7-18); CALCIUM LEVEL 9.4 MG/DL (8.8-10.2); CARBON DIOXIDE LEVEL 30 MEQ/L (21-32); CHLORIDE LEVEL 103 MEQ/L (98-107); CREATININE FOR GFR 0.98 MG/DL (0.70-1.30); GLOMERULAR FILTRATION RATE > 60.0 (>49); GLUCOSE, FASTING 162 MG/DL (70-100); MAGNESIUM LEVEL 2.2 MG/DL (1.8-2.4); POTASSIUM SERUM 4.5 MEQ/L (3.5-5.1); SODIUM LEVEL 138 MEQ/L (136-145)
[2021-11-13] MEDS: ASPIRIN 81MG ENTERIC TABLET PO SCH (08:24)
[2021-11-13] MEDS: APIXABAN 5 MG TAB (ELIQUIS) PO SCH ×2 (08:24→20:44)
[2021-11-13] MEDS: FUROSEMIDE 20 MG TAB PO SCH (08:24)
[2021-11-13] MEDS: ISOSORBIDE MON. (IMDUR) 30MG XR TAB PO SCH (08:24)
[2021-11-13] MEDS: GLIMEPIRIDE 2 MG TAB PO SCH (08:24)
[2021-11-13] MEDS: GABAPENTIN 300 MG CAP PO SCH ×2 (08:24→20:44)
[2021-11-13] MEDS: CALCIUM/VITAMIN D 500 MG TAB PO SCH (08:24)
[2021-11-13] MEDS: CARVedilol 12.5 MG TAB PO SCH ×2 (08:25→20:46)
[2021-11-13] MEDS: predniSONE 5 MG TAB PO SCH (08:25)
[2021-11-13] MEDS: NORCO, ANEXSIA 5/325MG TABLET (HYDROcodone/ACETAMINOPHEN) PO PRN (17:37)
[2021-11-13] MEDS: ATORVASTATIN 20 MG TAB PO SCH (20:44)
[2021-11-14 06:00] VITALS: BP 164/78
[2021-11-14 06:08] LABS: HEMATOCRIT 38.3 % (42.0-52.0); HEMOGLOBIN 12.7 g/dl (13.5-17.5); MEAN CORPUSCULAR HEMOGLOBIN 31.1 pg (27.0-33.0); MEAN CORPUSCULAR HGB CONC 33.2 g/dl (32.0-36.5); MEAN CORPUSCULAR VOLUME 93.9 fl (80.0-96.0); PLATELET COUNT, AUTOMATED 138 10^3/uL (150-450); RED BLOOD COUNT 4.08 10^6/uL (4.30-6.10)
[2021-11-14 06:36] LABS: BLOOD UREA NITROGEN 22 MG/DL (7-18); CALCIUM LEVEL 9.4 MG/DL (8.8-10.2); CARBON DIOXIDE LEVEL 30 MEQ/L (21-32); CHLORIDE LEVEL 103 MEQ/L (98-107); CREATININE FOR GFR 0.93 MG/DL (0.70-1.30); GLOMERULAR FILTRATION RATE > 60.0 (>49); GLUCOSE, FASTING 182 MG/DL (70-100); MAGNESIUM LEVEL 2.3 MG/DL (1.8-2.4); POTASSIUM SERUM 4.5 MEQ/L (3.5-5.1); SODIUM LEVEL 139 MEQ/L (136-145)
[2021-11-14] MEDS: APIXABAN 5 MG TAB (ELIQUIS) PO SCH ×2 (08:58→21:22)
[2021-11-14] MEDS: GABAPENTIN 300 MG CAP PO SCH ×2 (08:58→21:23)
[2021-11-14] MEDS: ASPIRIN 81MG ENTERIC TABLET PO SCH (08:58)
[2021-11-14] MEDS: GLIMEPIRIDE 2 MG TAB PO SCH (08:58)
[2021-11-14] MEDS: CALCIUM/VITAMIN D 500 MG TAB PO SCH (08:58)
[2021-11-14] MEDS: FUROSEMIDE 20 MG TAB PO SCH (08:59)
[2021-11-14] MEDS: CARVedilol 12.5 MG TAB PO SCH ×2 (08:59→21:22)
[2021-11-14] MEDS: predniSONE 5 MG TAB PO SCH (08:59)
[2021-11-14] MEDS: ISOSORBIDE MON. (IMDUR) 30MG XR TAB PO SCH (09:00)
[2021-11-14] MEDS: NORCO, ANEXSIA 5/325MG TABLET (HYDROcodone/ACETAMINOPHEN) PO PRN ×2 (09:03→21:24)
[2021-11-14] MEDS: ATORVASTATIN 20 MG TAB PO SCH (21:23)
[2021-11-15] MEDS: NYSTATIN 100,000 UNITS/GM TOPICAL PWD 15 GM TOP PRN ×2 (05:47→20:44)
[2021-11-15] MEDS: NORCO, ANEXSIA 5/325MG TABLET (HYDROcodone/ACETAMINOPHEN) PO PRN ×2 (05:50→15:15)
[2021-11-15 06:00] VITALS: BP 143/81
[2021-11-15 06:16] LABS: HEMATOCRIT 38.1 % (42.0-52.0); HEMOGLOBIN 12.7 g/dl (13.5-17.5); MEAN CORPUSCULAR HEMOGLOBIN 31.7 pg (27.0-33.0); MEAN CORPUSCULAR HGB CONC 33.3 g/dl (32.0-36.5); PLATELET COUNT, AUTOMATED 158 10^3/uL (150-450); RED BLOOD COUNT 4.01 10^6/uL (4.30-6.10); WHITE BLOOD COUNT 8.8 10^3/uL (4.0-10.0)
[2021-11-15 06:43] LABS: BLOOD UREA NITROGEN 18 MG/DL (7-18); CALCIUM LEVEL 8.9 MG/DL (8.8-10.2); CARBON DIOXIDE LEVEL 31 MEQ/L (21-32); CHLORIDE LEVEL 101 MEQ/L (98-107); CREATININE FOR GFR 0.94 MG/DL (0.70-1.30); GLOMERULAR FILTRATION RATE > 60.0 (>49); GLUCOSE, FASTING 169 MG/DL (70-100); MAGNESIUM LEVEL 2.2 MG/DL (1.8-2.4); POTASSIUM SERUM 4.2 MEQ/L (3.5-5.1); SODIUM LEVEL 135 MEQ/L (136-145)
[2021-11-15] MEDS: GABAPENTIN 300 MG CAP PO SCH ×2 (08:21→20:44)
[2021-11-15] MEDS: GLIMEPIRIDE 2 MG TAB PO SCH (08:21)
[2021-11-15] MEDS: APIXABAN 5 MG TAB (ELIQUIS) PO SCH ×2 (08:21→20:43)
[2021-11-15] MEDS: CALCIUM/VITAMIN D 500 MG TAB PO SCH (08:21)
[2021-11-15] MEDS: FUROSEMIDE 20 MG TAB PO SCH (08:21)
[2021-11-15] MEDS: ASPIRIN 81MG ENTERIC TABLET PO SCH (08:21)
[2021-11-15] MEDS: predniSONE 5 MG TAB PO SCH (08:22)
[2021-11-15] MEDS: ISOSORBIDE MON. (IMDUR) 30MG XR TAB PO SCH (08:22)
[2021-11-15] MEDS: CARVedilol 12.5 MG TAB PO SCH ×2 (08:23→20:44)
[2021-11-15] MEDS: ATORVASTATIN 20 MG TAB PO SCH (20:44)
[2021-11-16 06:00] VITALS: BP 122/72
[2021-11-16 06:31] LABS: HEMATOCRIT 39.6 % (42.0-52.0); HEMOGLOBIN 13.1 g/dl (13.5-17.5); MEAN CORPUSCULAR HEMOGLOBIN 31.1 pg (27.0-33.0); MEAN CORPUSCULAR HGB CONC 33.1 g/dl (32.0-36.5); MEAN CORPUSCULAR VOLUME 94.1 fl (80.0-96.0); PLATELET COUNT, AUTOMATED 148 10^3/uL (150-450); RED BLOOD COUNT 4.21 10^6/uL (4.30-6.10); WHITE BLOOD COUNT 8.2 10^3/uL (4.0-10.0)
[2021-11-16 07:15] LABS: BLOOD UREA NITROGEN 18 MG/DL (7-18); CALCIUM LEVEL 8.9 MG/DL (8.8-10.2); CARBON DIOXIDE LEVEL 31 MEQ/L (21-32); CHLORIDE LEVEL 101 MEQ/L (98-107); CREATININE FOR GFR 0.94 MG/DL (0.70-1.30); GLOMERULAR FILTRATION RATE > 60.0 (>49); GLUCOSE, FASTING 157 MG/DL (70-100); MAGNESIUM LEVEL 2.1 MG/DL (1.8-2.4); POTASSIUM SERUM 4.4 MEQ/L (3.5-5.1); SODIUM LEVEL 136 MEQ/L (136-145)
[2021-11-16] MEDS: GLIMEPIRIDE 2 MG TAB PO SCH (08:27)
[2021-11-16] MEDS: FUROSEMIDE 20 MG TAB PO SCH (08:27)
[2021-11-16] MEDS: CALCIUM/VITAMIN D 500 MG TAB PO SCH (08:27)
[2021-11-16] MEDS: GABAPENTIN 300 MG CAP PO SCH ×2 (08:27→21:16)
[2021-11-16] MEDS: NORCO, ANEXSIA 5/325MG TABLET (HYDROcodone/ACETAMINOPHEN) PO PRN ×2 (08:27→16:39)
[2021-11-16] MEDS: predniSONE 5 MG TAB PO SCH (08:27)
[2021-11-16] MEDS: ASPIRIN 81MG ENTERIC TABLET PO SCH (08:27)
[2021-11-16] MEDS: APIXABAN 5 MG TAB (ELIQUIS) PO SCH ×2 (08:27→21:16)
[2021-11-16] MEDS: ISOSORBIDE MON. (IMDUR) 30MG XR TAB PO SCH (08:30)
[2021-11-16] MEDS: CARVedilol 12.5 MG TAB PO SCH ×2 (08:32→21:16)
[2021-11-16] MEDS: LIDOCAINE 5% (LIDODERM) PATCH TD SCH (12:32)
[2021-11-16] MEDS: **NOTE PATIENT COMMENT** MISC XX SCH (21:16)
[2021-11-16] MEDS: ATORVASTATIN 20 MG TAB PO SCH (21:16)
[2021-11-16] MEDS: NYSTATIN 100,000 UNITS/GM TOPICAL PWD 15 GM TOP PRN (21:18)
[2021-11-17 06:00] VITALS: BP 120/68
[2021-11-17] MEDS: ASPIRIN 81MG ENTERIC TABLET PO SCH (08:31)
[2021-11-17] MEDS: FUROSEMIDE 20 MG TAB PO SCH (08:31)
[2021-11-17] MEDS: CALCIUM/VITAMIN D 500 MG TAB PO SCH (08:31)
[2021-11-17] MEDS: GABAPENTIN 300 MG CAP PO SCH ×2 (08:31→21:39)
[2021-11-17] MEDS: APIXABAN 5 MG TAB (ELIQUIS) PO SCH ×2 (08:31→21:38)
[2021-11-17] MEDS: CARVedilol 12.5 MG TAB PO SCH ×2 (08:33→21:46)
[2021-11-17] MEDS: predniSONE 5 MG TAB PO SCH (08:38)
[2021-11-17] MEDS: ISOSORBIDE MON. (IMDUR) 30MG XR TAB PO SCH (08:39)
[2021-11-17] MEDS: GLIMEPIRIDE 2 MG TAB PO SCH (08:39)
[2021-11-17] MEDS: NORCO, ANEXSIA 5/325MG TABLET (HYDROcodone/ACETAMINOPHEN) PO PRN ×2 (08:40→21:42)
[2021-11-17] MEDS: LIDOCAINE 5% (LIDODERM) PATCH TD SCH (09:50)
[2021-11-17] MEDS: ATORVASTATIN 20 MG TAB PO SCH (21:39)
[2021-11-17 21:46] VITALS: BP 152/91
[2021-11-17] MEDS: **NOTE PATIENT COMMENT** MISC XX SCH (21:46)
[2021-11-18 06:00] VITALS: BP 120/80
[2021-11-18 08:57] VITALS: BP 148/83
[2021-11-18] MEDS: APIXABAN 5 MG TAB (ELIQUIS) PO SCH (08:59)
[2021-11-18] MEDS: ASPIRIN 81MG ENTERIC TABLET PO SCH (08:59)
[2021-11-18] MEDS: predniSONE 5 MG TAB PO SCH (08:59)
[2021-11-18] MEDS: GABAPENTIN 300 MG CAP PO SCH (09:00)
[2021-11-18] MEDS: CALCIUM/VITAMIN D 500 MG TAB PO SCH (09:00)
[2021-11-18] MEDS: FUROSEMIDE 20 MG TAB PO SCH (09:00)
[2021-11-18] MEDS: GLIMEPIRIDE 2 MG TAB PO SCH (09:00)
[2021-11-18] MEDS: ISOSORBIDE MON. (IMDUR) 30MG XR TAB PO SCH (09:00)
[2021-11-18] MEDS: CARVedilol 12.5 MG TAB PO SCH (09:01)
[2021-11-18] MEDS: LIDOCAINE 5% (LIDODERM) PATCH TD SCH (09:01)
[2021-11-18] MEDS: NORCO, ANEXSIA 5/325MG TABLET (HYDROcodone/ACETAMINOPHEN) PO PRN (09:08)
[2021-11-18] MEDS ORDERED: GABA-282 PO (11:37)
== END 2021-11-18 13:16 | disposition home health service (06) | DRG 552 ==
LOC: M ED 11:39 → M ED INP 16:36 → ENRESERV 18:18 → M MSPAV 20:57
PROVIDERS: ADMIT Family Medicine; ATTEND Internal Medicine
PROC: B246ZZZ Ultrasonography of Right and Left Heart (ICD-10-PCS; principal; 2021-11-11)
DX: M54.50 Low back pain, unspecified (principal); Z68.42 Body mass index [BMI] 45.0-49.9, adult; R26.89 Other abnormalities of gait and mobility; I25.10 Atherosclerotic heart disease of native coronary artery without angina pectoris; Z95.5 Presence of coronary angioplasty implant and graft; I48.91 Unspecified atrial fibrillation; E78.5 Hyperlipidemia, unspecified; I10 Essential (primary) hypertension; E11.9 Type 2 diabetes mellitus without complications; Z79.52 Long term (current) use of systemic steroids; Z90.49 Acquired absence of other specified parts of digestive tract; Z87.891 Personal history of nicotine dependence; R53.1 Weakness; G89.29 Other chronic pain; Z20.822 Contact with and (suspected) exposure to COVID-19; Z79.01 Long term (current) use of anticoagulants; Z79.82 Long term (current) use of aspirin; Z88.0 Allergy status to penicillin; Z79.84 Long term (current) use of oral hypoglycemic drugs; E66.01 Morbid (severe) obesity due to excess calories; R60.9 Edema, unspecified; J84.89 Other specified interstitial pulmonary diseases

== ENCOUNTER → 2022-02-17 | Outpatient (CLI) | payer MEDICARE ==
[~2022-02-17] MED LIST changes: +GABA-282 PO; +HYDR-4571 PO; +PRED10PA PO
== END ==
LOC: M WHC 14:18
PROVIDERS: ATTEND Family Medicine
DX: M84.834 Other disorders of continuity of bone, left radius (principal); Z79.52 Long term (current) use of systemic steroids

== ENCOUNTER 2022-03-27 12:01 | Emergency (ER) | payer MEDICARE ==
[~2022-03-27] VITALS: Ht 177.8 cm; Wt 170.1 kg
[2022-03-27 14:20] LABS: BASO % 0.3 % (0.0-1.0); EOS # 0.1 10^3/uL (0.0-0.5); HEMATOCRIT 37.9 % (42.0-52.0); HEMOGLOBIN 12.6 g/dl (13.5-17.5); MEAN CORPUSCULAR HEMOGLOBIN 31.5 pg (27.0-33.0); MEAN CORPUSCULAR HGB CONC 33.2 g/dl (32.0-36.5); MEAN CORPUSCULAR VOLUME 94.8 fl (80.0-96.0); MONO # 0.5 10^3/uL (0.0-0.8); MONO % 6.4 % (2.0-8.0); NEUTROPHILS # 6.2 10^3/uL (1.5-8.5); NEUTROPHILS % 78.8 % (36.0-66.0); PLATELET COUNT, AUTOMATED 146 10^3/uL (150-450); WHITE BLOOD COUNT 7.8 10^3/uL (4.0-10.0)
[2022-03-27 14:33] LABS: INR 1.07; PROTHROMBIN TIME 14.1 SECONDS (12.5-14.5)
[2022-03-27 14:34] LABS: PARTIAL THROMBOPLASTIN TIME 29.7 SECONDS (24.8-34.2)
[2022-03-27 15:58] LABS: MB/CK RELATIVE INDEX 1.94 (< OR =4)
[2022-03-27 17:21] LABS: ALBUMIN 3.5 GM/DL (3.2-5.2); ALT/SGPT 17 U/L (12-78); BILIRUBIN,DIRECT 0.2 MG/DL (0.0-0.2); BILIRUBIN,TOTAL 0.7 MG/DL (0.2-1.0); BLOOD UREA NITROGEN 17 MG/DL (7-18); CALCIUM LEVEL 8.8 MG/DL (8.8-10.2); CARBON DIOXIDE LEVEL 28 MEQ/L (21-32); CHLORIDE LEVEL 105 MEQ/L (98-107); CREATININE FOR GFR 1.08 MG/DL (0.70-1.30); GLOMERULAR FILTRATION RATE > 60.0 (>49); GLUCOSE, FASTING 129 MG/DL (70-100); NT-PRO BNP 279 PG/ML (<125); POTASSIUM SERUM 4.1 MEQ/L (3.5-5.1); SODIUM LEVEL 139 MEQ/L (136-145); THYROID STIMULATING HORMONE 0.446 uIU/ML (0.358-3.740); THYROXINE (T4) 7.6 UG/DL (4.5-12.0)
[2022-03-27 18:05] LABS: CK-MB VALUE MASS 1.6 NG/ML (<3.6); MB/CK RELATIVE INDEX 1.9 (< OR =4)
[2022-03-27 18:16] VITALS: BP 152/78
== END 2022-03-27 18:38 | disposition home or self-care (01) ==
LOC: M ED 12:01
DX: R06.02 Shortness of breath (principal); R60.9 Edema, unspecified; I48.91 Unspecified atrial fibrillation; Z95.5 Presence of coronary angioplasty implant and graft; E11.9 Type 2 diabetes mellitus without complications; I13.0 Hypertensive heart and chronic kidney disease with heart failure and stage 1 through stage 4 chronic kidney disease, or unspecified chronic kidney disease; I50.9 Heart failure, unspecified; E78.5 Hyperlipidemia, unspecified; M54.50 Low back pain, unspecified; Z87.442 Personal history of urinary calculi; Z87.891 Personal history of nicotine dependence; Z88.0 Allergy status to penicillin; Z79.01 Long term (current) use of anticoagulants; Z79.899 Other long term (current) drug therapy; Z90.89 Acquired absence of other organs; Z90.49 Acquired absence of other specified parts of digestive tract; Z79.82 Long term (current) use of aspirin
CPT/HCPCS: 36415; 71045; 80048; 80076; 82550; 82553; 83605; 83880; 84436; 84443; 84484; 85025; 85610; 85730; 87040; 87486; 87581; 87633; 87798; 93005; 93041; 94760; 99285; G0103

== ENCOUNTER → 2022-07-25 | Outpatient (REF) | payer MEDICARE ==
[~2022-07-25] MED LIST changes: -DOXY-350 PO; +DOXY-444 PO
[2022-07-26 04:07] LABS: LDL DIRECT 59 mg/dL (0-99)
== END ==
LOC: M LAB REF 12:55
PROVIDERS: ATTEND Family Medicine
DX: E78.2 Mixed hyperlipidemia (principal); I48.0 Paroxysmal atrial fibrillation

== ENCOUNTER → 2022-11-02 | Outpatient (REF) | payer MEDICARE ==
[2022-11-02 17:57] LABS: PERCENT SATURATION 18.3 % (19.7-50.0)
[2022-11-02 17:59] LABS: FERRITIN 48.5 NG/ML (10.5-307.3)
[2022-11-02 18:00] LABS: FOLATE 7.2 NG/ML (>5.4)
== END ==
LOC: M LAB REF 17:08
PROVIDERS: ATTEND Family Medicine
DX: D64.9 Anemia, unspecified (principal)

== ENCOUNTER → 2022-12-29 | Outpatient (CLI) | payer MEDICARE | LOC: M WUC 08:44 | PROVIDERS: ATTEND Physician Assistant | DX: R06.00 Dyspnea, unspecified (principal); I50.32 Chronic diastolic (congestive) heart failure; R91.8 Other nonspecific abnormal finding of lung field ==

== ENCOUNTER → 2023-01-10 | Outpatient (REF) | payer MEDICARE ==
[2023-01-10 15:16] LABS: FERRITIN 51.7 NG/ML (10.5-307.3)
== END ==
LOC: M LAB REF 14:12
PROVIDERS: ATTEND Family Medicine
DX: D64.9 Anemia, unspecified (principal)

== ENCOUNTER 2023-04-24 07:02 | Day surgery (SDC) | payer MEDICARE ==
[~2023-04-24] VITALS: Ht 175.3 cm; Wt 155.9 kg
[~2023-04-24 07:02] MED LIST changes: +BSS IRR 500ML/OMIDRIA 4ML IRR BAG (OR ONLY) As Ordered ONE; +BUME2TAB3 PO; +CEFUROXIME 1MG/0.1ML INTRACAMERAL INJ As Ordered ONE; +CYCLOPENTOLATE 1% OPHTH SOLN 2ML BTL OD SCH; +LIDOCAINE 1% SDV 5ML VIAL As Ordered ONE; +LISI20TA33 PO; +OFLOXACIN 0.3 % (OCUFLOX) OPTH SOL 5ML OD SCH; +PHENYLEPHRINE 2.5% OPHTH SOL 2ML OD SCH; +PROPARACAINE 0.5% OPHTH SOL 15ML OD ONE; +ROSU40TA4 PO; +TROPICAMIDE 1% OPHTH SOLN 15ML OD SCH; +TRUL10IN SC
[2023-04-24] MEDS ORDERED: MOXIFLOXACIN 0.6MG/0.4ML INTRAOCULAR SYRINGE IO ONE (07:30)
[2023-04-24] MEDS ORDERED: fentaNYL 100 MCG/2 ML INJECTION As Ordered ONE (08:02)
[2023-04-24] MEDS ORDERED: MIDAZOLAM INJ 2MG/2ML VIAL As Ordered ONE (08:02)
[2023-04-24 09:09] VITALS: BP 166/74; TEMP 98.2; O2SAT 94
== END 2023-04-24 09:33 | disposition home or self-care (01) ==
LOC: M SDC 07:02
PROVIDERS: ATTEND Ophthalmology
DX: E11.36 Type 2 diabetes mellitus with diabetic cataract (principal); H25.11 Age-related nuclear cataract, right eye; I48.91 Unspecified atrial fibrillation; I25.10 Atherosclerotic heart disease of native coronary artery without angina pectoris; I10 Essential (primary) hypertension; E78.00 Pure hypercholesterolemia, unspecified; Z79.899 Other long term (current) drug therapy; Z79.01 Long term (current) use of anticoagulants; Z79.82 Long term (current) use of aspirin; Z79.85 Long-term (current) use of injectable non-insulin antidiabetic drugs; Z88.0 Allergy status to penicillin; Z95.5 Presence of coronary angioplasty implant and graft; Z87.891 Personal history of nicotine dependence
CPT/HCPCS: 66984; J1097; J2250; J3010; V2632

== ENCOUNTER 2023-05-22 06:04 | Day surgery (SDC) | payer MEDICARE ==
[~2023-05-22] VITALS: Ht 177.8 cm; Wt 149.9 kg
[~2023-05-22 06:04] MED LIST changes: -BSS IRR 500ML/OMIDRIA 4ML IRR BAG (OR ONLY) As Ordered ONE; -CEFUROXIME 1MG/0.1ML INTRACAMERAL INJ As Ordered ONE; -CYCLOPENTOLATE 1% OPHTH SOLN 2ML BTL OD SCH; +CYCLOPENTOLATE 1% OPHTH SOLN 2ML BTL OS SCH; -LIDOCAINE 1% SDV 5ML VIAL As Ordered ONE; +MOXIFLOXACIN 0.6MG/0.4ML INTRAOCULAR SYRINGE IO ONE; -OFLOXACIN 0.3 % (OCUFLOX) OPTH SOL 5ML OD SCH; +OFLOXACIN 0.3 % (OCUFLOX) OPTH SOL 5ML OS SCH; -PHENYLEPHRINE 2.5% OPHTH SOL 2ML OD SCH; +PHENYLEPHRINE 2.5% OPHTH SOL 2ML OS SCH; -PROPARACAINE 0.5% OPHTH SOL 15ML OD ONE; +PROPARACAINE 0.5% OPHTH SOL 15ML OS ONE; -TROPICAMIDE 1% OPHTH SOLN 15ML OD SCH; +TROPICAMIDE 1% OPHTH SOLN 15ML OS SCH
[2023-05-22] MEDS ORDERED: LIDOCAINE 1% SDV 5ML VIAL As Ordered ONE (06:37)
[2023-05-22] MEDS ORDERED: BSS IRR 500ML/OMIDRIA 4ML IRR BAG (OR ONLY) As Ordered ONE (06:38)
[2023-05-22] MEDS ORDERED: CEFUROXIME 1MG/0.1ML INTRACAMERAL INJ As Ordered ONE (06:39)
[2023-05-22] MEDS ORDERED: MIDAZOLAM INJ 2MG/2ML VIAL As Ordered ONE (07:27)
[2023-05-22] MEDS ORDERED: fentaNYL 100 MCG/2 ML INJECTION As Ordered ONE (07:27)
[2023-05-22 08:05] VITALS: BP 100/56; TEMP 98.4; O2SAT 98
== END 2023-05-22 08:20 | disposition home or self-care (01) ==
LOC: M SDC 06:04
PROVIDERS: ATTEND Ophthalmology
DX: E11.36 Type 2 diabetes mellitus with diabetic cataract (principal); H25.12 Age-related nuclear cataract, left eye; I48.91 Unspecified atrial fibrillation; I10 Essential (primary) hypertension; E78.00 Pure hypercholesterolemia, unspecified; Z79.899 Other long term (current) drug therapy; Z79.82 Long term (current) use of aspirin; Z79.01 Long term (current) use of anticoagulants; Z79.85 Long-term (current) use of injectable non-insulin antidiabetic drugs; G47.30 Sleep apnea, unspecified; Z87.891 Personal history of nicotine dependence; Z88.0 Allergy status to penicillin
CPT/HCPCS: 66984; J1097; J2250; J3010; V2632

== ENCOUNTER 2023-05-31 12:24 | Inpatient (IN) | payer MEDICARE ==
[~2023-05-31] VITALS: Ht 177.8 cm; Wt 151.1 kg
[~2023-05-31 12:24] MED LIST changes: -CYCLOPENTOLATE 1% OPHTH SOLN 2ML BTL OS SCH; -MOXIFLOXACIN 0.6MG/0.4ML INTRAOCULAR SYRINGE IO ONE; -OFLOXACIN 0.3 % (OCUFLOX) OPTH SOL 5ML OS SCH; -PHENYLEPHRINE 2.5% OPHTH SOL 2ML OS SCH; -PROPARACAINE 0.5% OPHTH SOL 15ML OS ONE; -TROPICAMIDE 1% OPHTH SOLN 15ML OS SCH
[2023-05-31] MEDS ORDERED: CIPR0.3S37 OD (12:38)
[2023-05-31] MEDS ORDERED: PREDOPD OD (12:38)
[2023-05-31] MEDS ORDERED: LISI10TA22 PO (12:38)
[2023-05-31] MEDS ORDERED: KETO0.5S4 OD (12:38)
[2023-05-31] MEDS ORDERED: ACETAMINOPHEN 325 MG TAB PO ONE (13:05)
[2023-05-31 13:17] LABS: BASO % 0.1 % (0.0-1.0); EOS % 0.1 % (0.0-3.0); HEMATOCRIT 24.8 % (42.0-52.0); LYMPH # 0.5 10^3/uL (1.5-5.0); LYMPH % 6.4 % (24.0-44.0); MEAN CORPUSCULAR HEMOGLOBIN 31.6 pg (27.0-33.0); MEAN CORPUSCULAR HGB CONC 32.3 g/dl (32.0-36.5); MONO # 0.5 10^3/uL (0.0-0.8); NEUTROPHILS # 6.3 10^3/uL (1.5-8.5); NEUTROPHILS % 86.1 % (36.0-66.0); PLATELET COUNT, AUTOMATED 103 10^3/uL (150-450); RED BLOOD COUNT 2.53 10^6/uL (4.30-6.10); WHITE BLOOD COUNT 7.3 10^3/uL (4.0-10.0)
[2023-05-31 13:34] LABS: ETHYL ALCOHOL (ETHANOL) 0.004 % (0.000-0.010)
[2023-05-31] MEDS: NS 1,000 ML IV SCH ×2 (13:34→21:36)
[2023-05-31 13:38] LABS: THYROID STIMULATING HORMONE 0.159 uIU/ML (0.55-4.78)
[2023-05-31 13:39] LABS: ALBUMIN 3.3 G/DL (3.2-5.2); ALKALINE PHOSPHATASE 54 U/L (46-116); ALT/SGPT 13 U/L (7.0-40); AST/SGOT 47 U/L (<34); BILIRUBIN,DIRECT 0.3 MG/DL (<0.4); BILIRUBIN,TOTAL 0.8 MG/DL (0.3-1.2); BLOOD UREA NITROGEN 19 MG/DL (9-23); CALCIUM LEVEL 8.5 MG/DL (8.3-10.6); CARBON DIOXIDE LEVEL 28 MMOL/L (20-31); CHLORIDE LEVEL 103 MMOL/L (98-107); CK-MB VALUE MASS < 1.0 NG/ML (<3.6); CPK CREATINE PHOSPHOKINASE 105 U/L (46-171); CREATININE FOR GFR 1.19 MG/DL (0.70-1.30); GLOMERULAR FILTRATION RATE > 60.0 (>49); GLUCOSE, FASTING 136 MG/DL (74-106); MB/CK RELATIVE INDEX 0.95 (< OR =4); POTASSIUM SERUM 4.3 MMOL/L (3.5-5.1); SODIUM LEVEL 139 MMOL/L (136-145); TOTAL PROTEIN 6.8 G/DL (5.7-8.2)
[2023-05-31] MEDS ORDERED: ISOVUE-370 76% 100ML VIAL As Ordered ONE (14:28)
[2023-05-31 14:57] LABS: PROCALCITONIN 0.15 ng/ml
[2023-05-31 15:08] LABS: CK-MB VALUE MASS < 1.0 NG/ML (<3.6)
[2023-05-31 15:10] LABS: CPK CREATINE PHOSPHOKINASE 78 U/L (46-171); MB/CK RELATIVE INDEX 1.28 (< OR =4)
[2023-05-31] MEDS ORDERED: HEPARIN SOD (PORCINE) 5000UNITS/ML 1ML VIAL/SYRINGE SQ SCH (16:25)
[2023-05-31] MEDS ORDERED: ALBUTEROL 90 MCG/ACT 8GM HFA INHALER INH PRN (16:25)
[2023-05-31] MEDS: SODIUM CHLORIDE HYPERTONIC 3% 4ML NEB SOL INH SCH ×2 (16:30→23:51)
[2023-05-31] MEDS ORDERED: SODIUM CHLORIDE HYPERTONIC 3% 4ML NEB SOL INH PRN (16:30)
[2023-05-31] MEDS ORDERED: ECOT81TA5 PO (16:43)
[2023-05-31] MEDS ORDERED: ELIQ5TAB PO (16:43)
[2023-05-31] MEDS ORDERED: HOME MED LIST COMPLETE! XX SCH ×2 (16:55→18:40)
[2023-05-31 17:40] VITALS: BP 142/84; TEMP 98.2; O2SAT 94
[2023-05-31] MEDS ORDERED: NORCO, ANEXSIA 5/325MG TABLET (HYDROcodone/ACETAMINOPHEN) PO PRN (17:40)
[2023-05-31] MEDS ORDERED: SENOKOT S TAB PO PRN (17:40)
[2023-05-31] MEDS ORDERED: MIRALAX *UNIT DOSE* 17GM PACKET PO PRN (17:40)
[2023-05-31] MEDS ORDERED: MOM 30ML SUSPENSION UDC PO PRN (17:40)
[2023-05-31] MEDS ORDERED: FUROSEMIDE 40MG/4ML VIAL IV ONE (18:05)
[2023-05-31] MEDS ORDERED: LevoFLOXacin 750 MG TABLET PO ONE (18:15)
[2023-05-31] MEDS: ACETAMINOPHEN TAB 650MG DOSE (2X325MG) PO SCH (18:25)
[2023-05-31 18:43] LABS: C REACTIVE PROTEIN QUANTITATIV 3.8 MG/DL (<1.0)
[2023-05-31 18:44] LABS: TOTAL IRON BINDING CAPACITY 269 UG/DL (250-425)
[2023-05-31 18:47] LABS: FERRITIN 36.7 NG/ML (10.5-307.3); MAGNESIUM LEVEL 1.6 MG/DL (1.8-2.4)
[2023-05-31 19:04] VITALS: BP 133/60; TEMP 99; O2SAT 94
[2023-05-31 19:17] VITALS: BP 131/60; TEMP 98.1; O2SAT 94
[2023-05-31 19:19] LABS: AMPHETAMINES LEVEL URINE NEGATIVE (NEGATIVE); BARBITURATES URINE NEGATIVE (NEGATIVE); BENZODIAZEPINES URINE NEGATIVE (NEGATIVE); CANNABINOIDS URINE NEGATIVE (NEGATIVE); COCAINE METABOLITE URINE NEGATIVE (NEGATIVE); METHADONE URINE NEGATIVE (NEGATIVE); PHENCYCLIDINE URINE NEGATIVE (NEGATIVE)
[2023-05-31 19:19] LABS: IRON (FE) < 5 UG/DL (65-175); PERCENT SATURATION 1.9 % (19.7-50.0)
[2023-05-31 19:20] LABS: INR 1.44; PROTHROMBIN TIME 17.1 SECONDS (12.5-14.5)
[2023-05-31 19:20] LABS: OPIATES URINE POSITIVE (NEGATIVE)
[2023-05-31 19:22] LABS: PARTIAL THROMBOPLASTIN TIME 37.7 SECONDS (24.8-34.2)
[2023-05-31 19:36] LABS: D-DIMER QUANT 0.75 ug/mL (<0.5)
[2023-05-31 19:56] VITALS: BP 148/70; TEMP 98.2; O2SAT 93
[2023-05-31] MEDS ORDERED: REMDESIVIR 200 MG in NS 250 ML IV ONE (20:00)
[2023-05-31 20:06] VITALS: BP 150/83; TEMP 97.3; O2SAT 95
[2023-05-31 20:51] VITALS: BP 170/76; TEMP 98.8; O2SAT 95
[2023-05-31] MEDS: CIPROFLOXACIN 0.3% OPHTH SOLN 2.5ML OD SCH (21:36)
[2023-05-31] MEDS: KETOROLAC 0.5% OPHTH SOLN OD SCH (21:36)
[2023-05-31] MEDS: prednisoLONE ACET 1% OPHTH SUSP 5ML OD SCH (21:36)
[2023-05-31] MEDS: CARVedilol 12.5 MG TAB PO SCH (21:37)
[2023-05-31] MEDS: SUCRALFATE 1 GM TAB PO SCH (21:37)
[2023-05-31] MEDS: APIXABAN 5 MG TAB (ELIQUIS) PO SCH (21:37)
[2023-05-31] MEDS: guaiFENesin ER TABLET 600 MG TAB PO SCH (21:37)
[2023-05-31] MEDS: PANTOPRAZOLE 40MG TAB (PROTONIX) PO SCH (21:37)
[2023-05-31] MEDS: ALBUTEROL 90 MCG/ACT 8GM HFA INHALER INH SCH (23:50)
[2023-06-01 00:32] LABS: HEMATOCRIT 24.5 % (42.0-52.0); HEMOGLOBIN 7.9 g/dl (13.5-17.5)
[2023-06-01] MEDS: ACETAMINOPHEN TAB 650MG DOSE (2X325MG) PO SCH ×4 (01:30→17:19)
[2023-06-01 04:56] VITALS: BP 129/69; TEMP 99.5; O2SAT 93
[2023-06-01] MEDS: LevoFLOXacin 750 MG TABLET PO SCH (05:50)
[2023-06-01 06:17] LABS: BASO % 0.2 % (0.0-1.0); EOS % 0.4 % (0.0-3.0); HEMATOCRIT 25.4 % (42.0-52.0); HEMOGLOBIN 8.2 g/dl (13.5-17.5); LYMPH # 0.5 10^3/uL (1.5-5.0); LYMPH % 9.6 % (24.0-44.0); MEAN CORPUSCULAR HEMOGLOBIN 31.2 pg (27.0-33.0); MEAN CORPUSCULAR HGB CONC 32.3 g/dl (32.0-36.5); MEAN CORPUSCULAR VOLUME 96.6 fl (80.0-96.0); MONO # 0.4 10^3/uL (0.0-0.8); MONO % 7.8 % (2.0-8.0); NEUTROPHILS % 81.6 % (36.0-66.0); RED BLOOD COUNT 2.63 10^6/uL (4.30-6.10); WHITE BLOOD COUNT 4.9 10^3/uL (4.0-10.0)
[2023-06-01 06:55] LABS: PLATELET COUNT, AUTOMATED 94 10^3/uL (150-450)
[2023-06-01 06:59] LABS: ALKALINE PHOSPHATASE 49 U/L (46-116); ALT/SGPT < 9 U/L (7.0-40); AST/SGOT 22 U/L (<34); BILIRUBIN,DIRECT 0.4 MG/DL (<0.4); BILIRUBIN,TOTAL 0.9 MG/DL (0.3-1.2); BLOOD UREA NITROGEN 18 MG/DL (9-23); CALCIUM LEVEL 7.8 MG/DL (8.3-10.6); CARBON DIOXIDE LEVEL 30 MMOL/L (20-31); CHLORIDE LEVEL 103 MMOL/L (98-107); CREATININE FOR GFR 1.29 MG/DL (0.70-1.30); GLOMERULAR FILTRATION RATE 58.8 (>49); GLUCOSE, FASTING 121 MG/DL (74-106); MAGNESIUM LEVEL 1.5 MG/DL (1.8-2.4); POTASSIUM SERUM 2.9 MMOL/L (3.5-5.1); SODIUM LEVEL 142 MMOL/L (136-145); TOTAL PROTEIN 6.1 G/DL (5.7-8.2)
[2023-06-01] MEDS ORDERED: MAG SULF 1GM/100ML (MAG RUN) 1 GM in IV 1 EA IV ONE (08:00)
[2023-06-01] MEDS: ALBUTEROL 90 MCG/ACT 8GM HFA INHALER INH SCH ×4 (08:58→20:44)
[2023-06-01] MEDS: SODIUM CHLORIDE HYPERTONIC 3% 4ML NEB SOL INH SCH ×4 (08:58→20:45)
[2023-06-01] MEDS ORDERED: predniSONE 5 MG TAB PO SCH (09:00)
[2023-06-01] MEDS: POTASSIUM CHLORIDE 10MEQ SR TABLET PO SCH ×2 (09:01→11:09)
[2023-06-01] MEDS: SUCRALFATE 1 GM TAB PO SCH ×4 (09:02→21:52)
[2023-06-01] MEDS: ASPIRIN 81MG ENTERIC TABLET PO SCH (09:02)
[2023-06-01] MEDS: ROSUVASTATIN 10 MG TAB (CRESTOR) PO SCH (09:02)
[2023-06-01] MEDS: BUMETANIDE 1 MG TAB PO SCH (09:02)
[2023-06-01] MEDS: CIPROFLOXACIN 0.3% OPHTH SOLN 2.5ML OD SCH ×4 (09:03→21:47)
[2023-06-01] MEDS: APIXABAN 5 MG TAB (ELIQUIS) PO SCH ×2 (09:03→21:52)
[2023-06-01] MEDS: GLIMEPIRIDE 2 MG TAB PO SCH (09:03)
[2023-06-01] MEDS: PANTOPRAZOLE 40MG TAB (PROTONIX) PO SCH ×2 (09:03→21:52)
[2023-06-01] MEDS: prednisoLONE ACET 1% OPHTH SUSP 5ML OD SCH ×4 (09:04→21:46)
[2023-06-01] MEDS: KETOROLAC 0.5% OPHTH SOLN OD SCH ×4 (09:04→21:47)
[2023-06-01] MEDS: NS 1,000 ML IV SCH ×2 (09:04→17:20)
[2023-06-01] MEDS: CARVedilol 12.5 MG TAB PO SCH ×2 (09:08→21:51)
[2023-06-01] MEDS: guaiFENesin ER TABLET 600 MG TAB PO SCH ×2 (09:09→21:48)
[2023-06-01] MEDS: ISOSORBIDE MON. (IMDUR) 30MG XR TAB PO SCH (09:09)
[2023-06-01] MEDS ORDERED: POTASSIUM CHLORIDE 10MEQ SR TABLET As Ordered ONE (11:06)
[2023-06-01] MEDS ORDERED: MAGNESIUM SULFATE 1GM/100ML D5W BAG (10MG/ML) As Ordered ONE (11:07)
[2023-06-01 12:26] LABS: HEMATOCRIT 26.8 % (42.0-52.0); HEMOGLOBIN 8.7 g/dl (13.5-17.5)
[2023-06-01] MEDS ORDERED: CEPACOL LOZENGE PO PRN (13:40)
[2023-06-01 14:30] LABS: MAGNESIUM LEVEL 1.7 MG/DL (1.8-2.4); POTASSIUM SERUM 3.4 MMOL/L (3.5-5.1)
[2023-06-01] MEDS ORDERED: GLUCOSE 4GM CHEW TABLET PO PRN (15:50)
[2023-06-01] MEDS ORDERED: DEXTROSE 50% 50ML SYRINGE IV PRN (15:50)
[2023-06-01] MEDS ORDERED: GLUCAGON INJ 1MG VIAL SC PRN (15:50)
[2023-06-01] MEDS: INSULIN LISPRO (NovoLOG) PER UNIT SC SCH ×2 (17:19→21:00)
[2023-06-01 18:00] VITALS: BP 139/97; TEMP 97.3; O2SAT 97
[2023-06-01 20:44] VITALS: O2SAT 92
[2023-06-01] MEDS: REMDESIVIR 100 MG in NS 250 ML IV SCH (21:47)
[2023-06-01 22:00] VITALS: BP 144/70; TEMP 97.7; O2SAT 95
[2023-06-02] VITALS (10 sets, daily range): BP systolic 140–158; BP diastolic 63–84; TEMP 97.9–98.2; O2SAT 93–98
[2023-06-02] MEDS ORDERED: ACETAMINOPHEN TAB 650MG DOSE (2X325MG) PO PRN
[2023-06-02 00:22] LABS: HEMATOCRIT 24.3 % (42.0-52.0)
[2023-06-02] MEDS: NS 1,000 ML IV SCH ×3 (05:33→11:16)
[2023-06-02] MEDS: LevoFLOXacin 750 MG TABLET PO SCH (06:19)
[2023-06-02 06:46] LABS: HEMATOCRIT 23.7 % (42.0-52.0); HEMOGLOBIN 7.7 g/dl (13.5-17.5); LYMPH # 0.4 10^3/uL (1.5-5.0); LYMPH % 7.5 % (24.0-44.0); MEAN CORPUSCULAR HEMOGLOBIN 31.3 pg (27.0-33.0); MEAN CORPUSCULAR HGB CONC 32.5 g/dl (32.0-36.5); MEAN CORPUSCULAR VOLUME 96.3 fl (80.0-96.0); MONO # 0.3 10^3/uL (0.0-0.8); MONO % 5.1 % (2.0-8.0); NEUTROPHILS # 4.6 10^3/uL (1.5-8.5); RED BLOOD COUNT 2.46 10^6/uL (4.30-6.10); WHITE BLOOD COUNT 5.3 10^3/uL (4.0-10.0)
[2023-06-02 07:00] LABS: PLATELET COUNT, AUTOMATED 87 10^3/uL (150-450)
[2023-06-02 07:06] LABS: BLOOD UREA NITROGEN 22 MG/DL (9-23); CALCIUM LEVEL 7.7 MG/DL (8.3-10.6); CARBON DIOXIDE LEVEL 28 MMOL/L (20-31); CHLORIDE LEVEL 107 MMOL/L (98-107); CREATININE FOR GFR 1.23 MG/DL (0.70-1.30); GLOMERULAR FILTRATION RATE > 60.0 (>49); GLUCOSE, FASTING 134 MG/DL (74-106); MAGNESIUM LEVEL 1.8 MG/DL (1.8-2.4); POTASSIUM SERUM 3.1 MMOL/L (3.5-5.1); SODIUM LEVEL 143 MMOL/L (136-145)
[2023-06-02] MEDS: BUMETANIDE 1 MG TAB PO SCH (08:04)
[2023-06-02] MEDS: ROSUVASTATIN 10 MG TAB (CRESTOR) PO SCH (08:04)
[2023-06-02] MEDS: ASPIRIN 81MG ENTERIC TABLET PO SCH (08:04)
[2023-06-02] MEDS: PANTOPRAZOLE 40MG TAB (PROTONIX) PO SCH ×2 (08:10→19:57)
[2023-06-02] MEDS: ISOSORBIDE MON. (IMDUR) 30MG XR TAB PO SCH (08:10)
[2023-06-02] MEDS: APIXABAN 5 MG TAB (ELIQUIS) PO SCH (08:11)
[2023-06-02] MEDS: CARVedilol 12.5 MG TAB PO SCH ×2 (08:11→19:59)
[2023-06-02] MEDS: guaiFENesin ER TABLET 600 MG TAB PO SCH ×2 (08:11→19:57)
[2023-06-02] MEDS: GLIMEPIRIDE 2 MG TAB PO SCH (08:12)
[2023-06-02] MEDS: SUCRALFATE 1 GM TAB PO SCH ×4 (08:12→19:57)
[2023-06-02] MEDS: INSULIN LISPRO (NovoLOG) PER UNIT SC SCH ×4 (08:12→19:58)
[2023-06-02] MEDS: KETOROLAC 0.5% OPHTH SOLN OD SCH (08:14)
[2023-06-02] MEDS: prednisoLONE ACET 1% OPHTH SUSP 5ML OD SCH (08:14)
[2023-06-02] MEDS: CIPROFLOXACIN 0.3% OPHTH SOLN 2.5ML OD SCH (08:14)
[2023-06-02] MEDS: ALBUTEROL 90 MCG/ACT 8GM HFA INHALER INH SCH ×4 (08:26→19:37)
[2023-06-02] MEDS: SODIUM CHLORIDE HYPERTONIC 3% 4ML NEB SOL INH SCH ×4 (08:27→19:37)
[2023-06-02] MEDS: CIPROFLOXACIN 0.3% OPHTH SOLN 2.5ML OS SCH ×4 (08:45→20:03)
[2023-06-02] MEDS: prednisoLONE ACET 1% OPHTH SUSP 5ML OS SCH ×4 (08:45→20:02)
[2023-06-02] MEDS: KETOROLAC 0.5% OPHTH SOLN OS SCH ×4 (08:45→20:03)
[2023-06-02 12:47] LABS: HEMATOCRIT 26.7 % (42.0-52.0); HEMOGLOBIN 8.5 g/dl (13.5-17.5)
[2023-06-02] MEDS ORDERED: POTASSIUM CHLORIDE 10MEQ SR TABLET PO ONE (13:55)
[2023-06-02] MEDS ORDERED: MAG SULF 1GM/100ML (MAG RUN) 1 GM in IV 1 EA IV ONE (14:00)
[2023-06-02] MEDS ORDERED: PANT40TA29 PO (14:05)
[2023-06-02] MEDS ORDERED: SUCR1TA PO (14:05)
[2023-06-02] MEDS ORDERED: NIRM1TAB PO (14:07)
[2023-06-02 14:56] LABS: HEMATOCRIT 26.2 % (42.0-52.0); HEMOGLOBIN 8.4 g/dl (13.5-17.5)
[2023-06-02 19:54] LABS: HEMATOCRIT 24.4 % (42.0-52.0); HEMOGLOBIN 8.1 g/dl (13.5-17.5)
[2023-06-02] MEDS: REMDESIVIR 100 MG in NS 250 ML IV SCH (19:58)
[2023-06-03] VITALS (10 sets, daily range): BP systolic 132–179; BP diastolic 73–87; TEMP 97.9–98.8; O2SAT 93–97
[2023-06-03 01:05] LABS: HEMATOCRIT 25.8 % (42.0-52.0); HEMOGLOBIN 8.6 g/dl (13.5-17.5)
[2023-06-03] MEDS: NS 1,000 ML IV SCH ×2 (02:04→11:05)
[2023-06-03] MEDS: LevoFLOXacin 750 MG TABLET PO SCH (05:06)
[2023-06-03 06:38] LABS: HEMATOCRIT 26.4 % (42.0-52.0); HEMOGLOBIN 8.7 g/dl (13.5-17.5); LYMPH # 0.5 10^3/uL (1.5-5.0); LYMPH % 8.6 % (24.0-44.0); MEAN CORPUSCULAR HEMOGLOBIN 31.2 pg (27.0-33.0); MEAN CORPUSCULAR VOLUME 94.6 fl (80.0-96.0); MONO # 0.3 10^3/uL (0.0-0.8); MONO % 5.3 % (2.0-8.0); NEUTROPHILS # 5.1 10^3/uL (1.5-8.5); NEUTROPHILS % 85.6 % (36.0-66.0); RED BLOOD COUNT 2.79 10^6/uL (4.30-6.10); WHITE BLOOD COUNT 5.9 10^3/uL (4.0-10.0)
[2023-06-03 06:48] LABS: PLATELET COUNT, AUTOMATED 90 10^3/uL (150-450)
[2023-06-03 07:02] LABS: BLOOD UREA NITROGEN 22 MG/DL (9-23); CALCIUM LEVEL 7.7 MG/DL (8.3-10.6); CARBON DIOXIDE LEVEL 29 MMOL/L (20-31); CHLORIDE LEVEL 110 MMOL/L (98-107); CREATININE FOR GFR 1.17 MG/DL (0.70-1.30); GLOMERULAR FILTRATION RATE > 60.0 (>49); GLUCOSE, FASTING 130 MG/DL (74-106); MAGNESIUM LEVEL 1.9 MG/DL (1.8-2.4); POTASSIUM SERUM 3.2 MMOL/L (3.5-5.1); SODIUM LEVEL 145 MMOL/L (136-145)
[2023-06-03] MEDS: ALBUTEROL 90 MCG/ACT 8GM HFA INHALER INH SCH ×2 (07:43→13:31)
[2023-06-03] MEDS: SODIUM CHLORIDE HYPERTONIC 3% 4ML NEB SOL INH SCH ×2 (07:44→12:00)
[2023-06-03] MEDS: INSULIN LISPRO (NovoLOG) PER UNIT SC SCH ×2 (08:36→13:02)
[2023-06-03] MEDS: PANTOPRAZOLE 40MG TAB (PROTONIX) PO SCH (08:37)
[2023-06-03] MEDS: ROSUVASTATIN 10 MG TAB (CRESTOR) PO SCH (08:37)
[2023-06-03] MEDS: guaiFENesin ER TABLET 600 MG TAB PO SCH (08:37)
[2023-06-03] MEDS: SUCRALFATE 1 GM TAB PO SCH ×2 (08:37→13:02)
[2023-06-03] MEDS: GLIMEPIRIDE 2 MG TAB PO SCH (08:37)
[2023-06-03] MEDS: KETOROLAC 0.5% OPHTH SOLN OS SCH ×2 (08:38→13:03)
[2023-06-03] MEDS: prednisoLONE ACET 1% OPHTH SUSP 5ML OS SCH ×2 (08:38→13:04)
[2023-06-03] MEDS: BUMETANIDE 1 MG TAB PO SCH (08:47)
[2023-06-03] MEDS: ISOSORBIDE MON. (IMDUR) 30MG XR TAB PO SCH (08:47)
[2023-06-03] MEDS: CIPROFLOXACIN 0.3% OPHTH SOLN 2.5ML OS SCH ×2 (08:47→13:00)
[2023-06-03] MEDS ORDERED: MAG SULF 1GM/100ML (MAG RUN) 1 GM in IV 1 EA IV ONE (09:00)
[2023-06-03] MEDS ORDERED: POTASSIUM CHLORIDE 10MEQ SR TABLET PO ONE (09:00)
[2023-06-03] MEDS ORDERED: CARVedilol 12.5 MG TAB PO SCH (09:00)
[2023-06-03 10:38] LABS: HEMATOCRIT 28.7 % (42.0-52.0); HEMOGLOBIN 9.3 g/dl (13.5-17.5)
== END 2023-06-03 15:43 | disposition home or self-care (01) | DRG 177 ==
LOC: M ED 12:24 → M ED INP 16:19 → M MSPAV 17:40
PROVIDERS: ADMIT General Practice; ATTEND General Practice
PROC: 30233N1 Transfusion of Nonautologous Red Blood Cells into Peripheral Vein, Percutaneous Approach (ICD-10-PCS; principal; 2023-05-31)
DX: U07.1 COVID-19 (principal); J12.82 Pneumonia due to coronavirus disease 2019; Z68.42 Body mass index [BMI] 45.0-49.9, adult; K92.2 Gastrointestinal hemorrhage, unspecified; I10 Essential (primary) hypertension; E66.01 Morbid (severe) obesity due to excess calories; I25.10 Atherosclerotic heart disease of native coronary artery without angina pectoris; Z95.2 Presence of prosthetic heart valve; I48.91 Unspecified atrial fibrillation; E78.5 Hyperlipidemia, unspecified; E11.9 Type 2 diabetes mellitus without complications; G47.33 Obstructive sleep apnea (adult) (pediatric); D50.0 Iron deficiency anemia secondary to blood loss (chronic); Z87.891 Personal history of nicotine dependence; Z91.030 Bee allergy status; Z88.0 Allergy status to penicillin; Z79.899 Other long term (current) drug therapy; Z79.82 Long term (current) use of aspirin; Z79.52 Long term (current) use of systemic steroids

== ENCOUNTER → 2024-03-11 | Outpatient (REF) | payer MEDICARE ==
[~2024-03-11] MED LIST changes: +CIPR0.3S37 OD; +DOXY-440 PO; -DOXY-444 PO; +ECOT81TA5 PO; +GABA-1172 PO; -GABA-282 PO; -GLIM1TAB4 PO; +GLIM1TAB84 PO; +KETO0.5S4 OD; +LISI10TA22 PO; +NIRM1TAB PO; +PANT40TA29 PO; +PREDOPD OD; -ROSU40TA4 PO; +ROSU40TA81 PO; +SUCR1TA PO
== END ==
LOC: M LAB REF 13:03
PROVIDERS: ATTEND Family Medicine
DX: E07.9 Disorder of thyroid, unspecified (principal)

== ENCOUNTER → 2024-05-08 | Outpatient (REF) | payer MEDICARE ==
[2024-05-09 08:08] LABS: LDL DIRECT 41 mg/dL (<100)
== END ==
LOC: M LAB REF 12:50
PROVIDERS: ATTEND Nurse Practitioner Family
DX: E78.2 Mixed hyperlipidemia (principal); I50.32 Chronic diastolic (congestive) heart failure; I48.0 Paroxysmal atrial fibrillation

== ENCOUNTER → 2024-08-13 | Outpatient (CLI) | payer MEDICARE | LOC: M WUC 13:10 | PROVIDERS: ATTEND Nurse Practitioner | DX: N20.0 Calculus of kidney (principal) ==

== ENCOUNTER → 2025-05-08 | Outpatient (REF) | payer MEDICARE ==
[~2025-05-08] MED LIST changes: -BACTDSTA PO; -CLOT10TR MT; +CLOT10TR11 MT; -KETO0.5S4 OD; +KETO5DRO32 OD; +SULF-8 PO
== END ==
LOC: M LAB REF 11:52
PROVIDERS: ATTEND Family Medicine
DX: R06.00 Dyspnea, unspecified (principal); J84.89 Other specified interstitial pulmonary diseases